=== PATIENT | female | born 1985 | race Caucasian/White ===

== ENCOUNTER 2018-08-24 14:00 | Outpatient (RCR) | payer OTHER, SELFPAY ==
[2018-08-17 13:29] VITALS: BP 118/71; PULSE 78; RESP 16; TEMP 37.3; BMI 29.2
--- NOTE | 2018-08-17 14:41 | HP.PCM_ITS ---
(1) Chronic venous insufficiency Status: Chronic Current Visit: Yes Code(s): I87.2 - Venous insufficiency (chronic) (peripheral) (2) Varicose veins with ulcer and inflammation Status: Chronic Current Visit: Yes Code(s): I83.209 - Varicose veins of unspecified lower extremity with both ulcer of unspecified site and inflammation; L97.909 - Non-pressure chronic ulcer of unspecified part of unspecified lower leg with unspecified severity (3) Leg swelling Status: Chronic Current Visit: Yes Code(s): M79.89 - Other specified soft tissue disorders (4) Venous hypertension, chronic, with ulcer and inflammation Status: Chronic Current Visit: Yes Qualifiers: Laterality: left Qualified Code(s): I87.332 - Chronic venous hypertension (idiopathic) with ulcer and inflammation of left lower extremity; L97.929 - Non- pressure chronic ulcer of unspecified part of left lower leg with unspecified severity Code(s): I87.339 - Chronic venous hypertension (idiopathic) with ulcer and inflammation of unspecified lower extremity; L97.909 - Non-pressure chronic ulcer of unspecified part of unspecified lower leg with unspecified severity (5) Postphlebitic calf ulcer Status: Chronic Current Visit: Yes Code(s): I87.019 - Postthrombotic syndrome with ulcer of unspecified lower extremity; L97.209 - Non-pressure chronic ulcer of unspecified calf with unspecified severity (6) Venous stasis ulcer Status: Chronic Current Visit: Yes Qualifiers: Venous stasis ulcer site: calf Code(s): I83.009 - Varicose veins of unspecified lower extremity with ulcer of unspecified site; L97.909 - Non-pressure chronic ulcer of unspecified part of unspecified lower leg with unspecified severity (7) Bleeding from varicose vein Status: Chronic Current Visit: Yes Code(s): I83.899 - Varicose veins of unspecified lower extremity with other complications (8) History of thrombophlebitis Status: Chronic Current Visit: Yes Code(s): Z86.72 - Personal history of thrombophlebitis History of Present Illness Date of Service: 08/17/18 Chief Complaint: Chronic venous insufficiency, varicose veins with ulceration and inflammation, post phlebitic syndrome with ulceration and inflammation, chronic venous hypertension with ulceration and inflammation, venous stasis ulceration?left lower extremity History of Wound: This is a 32-year-old [facility] female who presents with ulcerations on the left anterior tibial surface, related to her chronic venous disease. She has had approximately 3 episodes of spontaneous bleeding from these sites, since July 30, 2018. She had similar problems approximately 2 years ago, with healing which occurred spontaneously. On each recent occasion, the bleeding has occurred during or after a hot shower. The bleeding is described as profuse. In each case, the patient elevated her lower extremity and applied pressure, which allowed the bleeding to cease. Patient has a long- standing history of chronic venous disease. She is a Ab1, with 1 spontaneous miscarriage. Venous disease is present on the maternal side of her family. The patient has had superficial thrombophlebitis on 2 occasions in the past, each associated with a , in 2012 and again in 2014. The patient is active. She sleeps on a flat mattress at night. She has been wearing compression stockings of less than 20-30 mmHg compression. She relates swelling in her left lower extremity, typically at days end. Past Medical History Past Medical History: Chronic Problems Chronic venous insufficiency (Chronic) Varicose veins with ulcer and inflammation (Chronic) Leg swelling (Chronic) Venous hypertension, chronic, with ulcer and inflammation (Chronic) Postphlebitic calf ulcer (Chronic) Venous stasis ulcer (Chronic) Bleeding from varicose vein (Chronic) History of thrombophlebitis (Chronic) Past Medical History: Patient's history is negative for myocardial infarction, congestive heart failure, cerebrovascular accident, hypertension, cancer, renal disease, pulmonary disease, hyperlipidemia, and thyroid disease. She has a history of superficial thrombophlebitis on 2 occasions in the past, each associated with a . Surgical History: - - Patient is a Ab1 (spontaneous). She has undergone no prior major surgical procedures in the past. Allergies/Adverse Reactions: Allergies No Known Allergies Allergy (Verified 08/17/18 13:51) - Family History Paternal - - Patient's father is 55 years of age with a history of colon cancer. Patient's mother is 53 years of age and is healthy. Social History: Patient is . She is a mother of 4 daughters. 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 She denies use of alcohol and tobacco products. Lives: Spouse/ Significant Other Smoking Status: Never smoker Tobacco Use: Non-smoker Alcohol: None Drugs: None Review of Systems Constitutional: Denies: Chills, Fever, Weight Change Eyes: Denies: Pain, Vision Change HEENT: Denies: Difficulty Hearing, Difficulty Swallowing, Sinus Congestion Cardiovascular: Denies: Chest Pain, Palpitations Respiratory: Denies: Cough, Shortness of Breath Gastrointestinal: Denies: Diarrhea, Nausea, Vomiting Genitourinary: Denies: Dysuria, Hematuria Endocrine: Denies: Heat/ Cold Intolerance, Polydipsia, Polyuria Hematologic/ Lymphatic: Denies: Easy Bruising, Easy Bleeding - Physical Exam Vital Signs Temp Pulse Resp BP 99.1 F 78 16 118/71 08/17/18 13:29 08/17/18 13:29 08/17/18 13:29 08/17/18 13:29 General: Alert, Oriented x3, Cooperative, No apparent distress, Well developed, Well nourished HEENT: Atraumatic, PERRLA, EOMI, Normocephalic Oral: Moist Mucosa, No Gingival or Mucosal Lesions/ Ulcerations Neck: Supple, No JVD, Negative Carotid Bruits, Negative Hepatojugular Reflux, No Nodes, No Nuchal Rigidity, Trachea Midline Lungs: Clear to auscultation, Normal air movement, No rhonchi, No wheeze, No rales Cardiovascular: Regular rate, Regular Rhythm, Normal S1, Normal S2, No murmurs, No Ectopic Activity Abdomen: Soft, Non Tender, Non-Distended Extremities: No clubbing, No cyanosis, No edema, No Calf Tenderness, Peripheral Pulses Normal, - - 3 small ulcerations are noted on the left anterior tibial surface, within proximity to each. There is no active bleeding. There is no significant swelling in the lower extremities. Circumference measurements are documented elsewhere. Ulcer dimensions are documented elsewhere. There is no sign of infection or cellulitis. Multiple large varicosities are noted on the left lower extremity, involving the medial thigh and calf, and on the lateral aspect of the left foot. Skin: No rashes Wound Measurements and Assessment WC - Nurse 1 - General Ulcer Measurement Start: 08/17/18 13:27 Freq: Status: Active Protocol: Activity Type Activity Date Activity User E-Sign Co-Sign Detail Recorded Client Recorded Date Recorded By Document 08/17/18 13:29 [facility] [id number] 08/17/18 13:48 [facility] 08/17/18 13:29 Wound Center Nurse 1 [Ulcer Assessment] #2- LT LUU INFERIOR -Combined with other wound No -Current Size (cm) - Length 0.6 -Current Size (cm) - Width 0.5 -Current Size (cm) - Depth 0.1 -Total Square Cm 0.30 -Date of Last Picture (Recall this 08/17/18 field) -Photo Taken Yes -Epithelialization None Present -Tunneling No -Undermining/Tunneling No -Circular Undermining No -Exudate Amt None Present (0 %) -Wound Margin Distinct, Outline Attached -Granulation Amt None Present (0 %) -Slough/Fibrin Yes -Necrosis Amt Large (67-100%) -Necrotic Tissue Type Eschar -Structure Exposed N/A -Texture (Zeenat-wound Skin Appearance) Assessed -Moisture (Zeenat-wound Skin Appearance Assessed ) -Color (Zeenat-wound Skin Appearance) Assessed -Temperature (Zeenat-wound Skin No Abnormality Appearance) (Pt Warm) -Tenderness on Palpation (Zeenat-wound No Skin Appearance) -Ulcer Cleansing Rinsed/ Irrigated with Saline -Foul Odor after Cleansing No -Anesthetic Used 5% Lidocaine Gel #1- LT LUU SUPERIOR -Combined with other wound No -Current Size (cm) - Length 0.4 -Current Size (cm) - Width 0.4 -Current Size (cm) - Depth 0.3 -Total Square Cm 0.16 -Date of Last Picture (Recall this 08/17/18 field) -Photo Taken Yes -Epithelialization None Present -Tunneling No -Undermining/Tunneling No -Circular Undermining No -Exudate Amt None Present (0 %) -Wound Margin Distinct, Outline Attached -Granulation Amt Small (1-33%) -Granulation Quality Red -Slough/Fibrin Yes -Necrosis Amt Small (1-33%) -Necrotic Tissue Type Adherent Slough -Texture (Zeenat-wound Skin Appearance) Scarring -Moisture (Zeenat-wound Skin Appearance Dry/Scaly ) -Color (Zeenat-wound Skin Appearance) Assessed -Temperature (Zeenat-wound Skin No Abnormality Appearance) (Pt Warm) -Tenderness on Palpation (Zeenat-wound Yes Skin Appearance) -Ulcer Cleansing Rinsed/ Irrigated with Saline -Foul Odor after Cleansing No -Anesthetic Used 5% Lidocaine Gel [Edema Assessment] -Lower Limb Edema Present Yes -Right Calf (cm) 36 -Right Ankle (cm) 20.7 -Left Calf (cm) 38.5 -Left Ankle (cm) 21.7 WC - Nurse 2 - General Ulcer CM Notes Start: 08/17/18 13:27 Freq: Status: Active Protocol: Activity Type Activity Date Activity User E-Sign Co-Sign Detail Recorded Client Recorded Date Recorded By Document 08/17/18 14:01 [id number] 08/17/18 14:10 08/17/18 14:01 Wound Center Nurse 2 [Procedure/Treatment] #2- LT LUU INFERIOR -Time 14:06 -Correct Patient Yes -Correct Side, Site, Position Yes -Correct Procedure Yes -Procedure Performed No -Wound/Ulcer Outcome Not Healed -Ulcer Cleansing Rinsed/ Irrigated with Saline -Foul Odor after Cleansing No -Bioengineered Tissue No -Topical Lidocaine (%) 5 -Bleeding Controlled with NA -Offloading No #1- LT LUU SUPERIOR -Time 14:07 -Correct Patient Yes -Correct Side, Site, Position Yes -Correct Procedure Yes -Procedure Performed No -Wound/Ulcer Outcome Not Healed -Ulcer Cleansing Rinsed/ Irrigated with Saline -Foul Odor after Cleansing No -Bioengineered Tissue No -Topical Lidocaine (%) 5 -Bleeding Controlled with NA -Offloading No [See Physician Procedure note for Specifics] Pain Scale: 0-10 Numeric [Pain] -Is Patient Pain Free? Yes Musculoskeletal: No Muscle Wasting Neurological: Cranial nerves II-XII grossly intact, Neuro grossly intact Psych/Mental Status: Normal Affect, Appropriate, Alert and oriented to time, place, person, mood and affect Debridement Note Post-Debridement Measurements/Treatment MATEO - Nurse 2 - General Ulcer CM Notes Start: 08/17/18 13:27 Freq: Status: Active Protocol: Activity Type Activity Date Activity User E-Sign Co-Sign Detail Recorded Client Recorded Date Recorded By Document 08/17/18 14:01 [id number] 08/17/18 14:10 08/17/18 14:01 Wound Center Nurse 2 #2- LT LUU INFERIOR -Time 14:06 -Correct Patient Yes -Correct Side, Site, Position Yes -Correct Procedure Yes -Procedure Performed No -Wound/Ulcer Outcome Not Healed -Ulcer Cleansing Rinsed/ Irrigated with Saline -Foul Odor after Cleansing No -Bioengineered Tissue No -Topical Lidocaine (%) 5 -Bleeding Controlled with NA -Offloading No #1- LT LUU SUPERIOR -Time 14:07 -Correct Patient Yes -Correct Side, Site, Position Yes -Correct Procedure Yes -Procedure Performed No -Wound/Ulcer Outcome Not Healed -Ulcer Cleansing Rinsed/ Irrigated with Saline -Foul Odor after Cleansing No -Bioengineered Tissue No -Topical Lidocaine (%) 5 -Bleeding Controlled with NA -Offloading No Pain Scale: 0-10 Numeric Is Patient Pain Free? Yes As a result of suspected underlying venous hypertension, the patient's ulcerations were not debrided today, and effort to avoid bleeding. No debridement was completed today Assessment/Plan Active Problems Chronic venous insufficiency (Chronic) Varicose veins with ulcer and inflammation (Chronic) Leg swelling (Chronic) Venous hypertension, chronic, with ulcer and inflammation (Chronic) Postphlebitic calf ulcer (Chronic) Venous stasis ulcer (Chronic) Bleeding from varicose vein (Chronic) History of thrombophlebitis (Chronic) Assessment: This is a generally healthy 32-year-old female, with severe chronic venous disease. Her history is documented above. She presents with 3 small ulcerations on the left anterior tibial surface, with recent episodes of bleeding from these sites. Her presenting problems appear related to chronic venous hypertension and chronic venous insufficiency. Plan: A lengthy discussion has been undertaken with the patient and her , who is at the bedside. We are to implement conservative treatment measures. These measures have been thoroughly explained. Patient is to continue sleeping on a flat mattress at night. She has been encouraged to elevate her lower extremities as much as possible even during daytime hours. Elevation is to be to heart level, or higher. She is to avoid idle standing and sitting. Activity has been encouraged. She is to maintain optimal weight. A prescription has been provided for graduated compression stockings of 20-30 mmHg compression, waist-high. At which time the patient is able to obtain the compression stockings, we are to SurePress, which will be wrapped on the left lower extremity daily. The patient and her are to be instructed in the appropriate means of applying the SurePress wrap. We have also briefly discussed a more aggressive approach relative to the patient's presenting manifestations. As a prelude to possible intervention, a venous duplex examination is to be scheduled. Patient will follow-up after venous duplex assessment has been performed of her lower extremities. Influenza vaccine was not administered today. The patient is not a smoker. Patient weighs 165 pounds. She stands 5 feet 3 inches tall. Her BMI is 29.2, which places her in an overweight category. Weight optimization has been recommended, in collaboration with her primary care physician has been advised.
--- NOTE | 2018-08-24 13:00 | VDLE_ITS ---
Reason For Study: Edema RIGHT LEFT CFV is compressible, spontaneous, phasic, CFV is compressible, spontaneous, phasic, competent and demonstrates normal competent, and demonstrates normal augmentation. augmentation. FV is compressible, spontaneous, phasic, FV is compressible, spontaneous, phasic, competent and demonstrates normal competent and demonstrates normal augmentation. augmentation. POP V is compressible, spontaneous, phasic, POP V is compressible, spontaneous, phasic, competent and demonstrates normal competent and demonstrates normal augmentation. augmentation. T/P Trunk is compressible. T/P Trunk is compressible. PTV is compressible. PTV is compressible. RT PerV is compressible. LT PerV is compressible. SFJ is competent. SFJ is INCOMPETENT. GSV is competent. GSV is INCOMPETENT throughout for greater SSV is competent. than 0.5 seconds and measures 0.97 x 0.93 cm. Procedure SSV is INCOMPETENT for greater than 0.5 Exam performed in department. seconds and measures 0.25 x 0.22 cm. INCOMPETENT chief procurement officer at 13 cm above medial malleolus. Interpretation Summary Deep veins of the lower extremities are bilaterally patent and compressible segmentally. There is no evidence of deep vein thrombosis on either side. Valvular competence appears intact within the proximal deep venous systems bilaterally. The greater saphenous veins appear bilaterally patent and compressible segmentally. The right sapheno-femoral junction is competent . The left sapheno-femoral junction is incompetent . The right greater saphenous vein appears segmentally competent. The left greater saphenous vein appears segmentally incompetent. The right small saphenous vein is patent and competent. The left small saphenous vein is patent and incompetent. An incompetent chief procurement officer vein is noted in the left calf, located 13 centimeters proximal to the left medial malleolus. Ordering Physician: Parker Morgan Referring Physician: MD Bruce Schroeder Performed By: Lori Beverly RVT and Student
[2018-08-24 14:03] VITALS: BP 124/75; PULSE 86; RESP 14; TEMP 35.9; BMI 29.2
--- NOTE | 2018-08-24 15:18 | PCM.WC.HP ---
(1) Chronic venous insufficiency Status: Chronic Current Visit: Yes Code(s): I87.2 - Venous insufficiency (chronic) (peripheral) (2) Varicose veins with ulcer and inflammation Status: Chronic Current Visit: Yes Code(s): I83.209 - Varicose veins of unspecified lower extremity with both ulcer of unspecified site and inflammation; L97.909 - Non-pressure chronic ulcer of unspecified part of unspecified lower leg with unspecified severity (3) Leg swelling Status: Chronic Current Visit: Yes Code(s): M79.89 - Other specified soft tissue disorders (4) Venous hypertension, chronic, with ulcer and inflammation Status: Chronic Current Visit: Yes Qualifiers: Laterality: left Qualified Code(s): I87.332 - Chronic venous hypertension (idiopathic) with ulcer and inflammation of left lower extremity; L97.929 - Non-pressure chronic ulcer of unspecified part of left lower leg with unspecified severity Code(s): I87.339 - Chronic venous hypertension (idiopathic) with ulcer and inflammation of unspecified lower extremity; L97.909 - Non-pressure chronic ulcer of unspecified part of unspecified lower leg with unspecified severity (5) Postphlebitic calf ulcer Status: Chronic Current Visit: Yes Code(s): I87.019 - Postthrombotic syndrome with ulcer of unspecified lower extremity; L97.209 - Non-pressure chronic ulcer of unspecified calf with unspecified severity (6) Venous stasis ulcer Status: Chronic Current Visit: Yes Qualifiers: Venous stasis ulcer site: calf Laterality: left Code(s): I83.009 - Varicose veins of unspecified lower extremity with ulcer of unspecified site; L97.909 - Non-pressure chronic ulcer of unspecified part of unspecified lower leg with unspecified severity (7) Bleeding from varicose vein Status: Chronic Current Visit: Yes Code(s): I83.899 - Varicose veins of unspecified lower extremity with other complications (8) History of thrombophlebitis Status: Chronic Current Visit: Yes Code(s): Z86.72 - Personal history of thrombophlebitis History of Present Illness Chief Complaint: Chronic venous insufficiency, varicose veins with ulceration and inflammation, post phlebitic syndrome with ulceration and inflammation, chronic venous hypertension with ulceration and inflammation, venous stasis ulceration?left lower extremity History of Wound: This is a 32-year-old [facility] female who presents with ulcerations on the left anterior tibial surface, related to her chronic venous disease. She has had approximately 3 episodes of spontaneous bleeding from these sites, since July 30, 2018. She had similar problems approximately 2 years ago, with healing which occurred spontaneously. On each recent occasion, the bleeding has occurred during or after a hot shower. The bleeding is described as profuse. In each case, the patient elevated her lower extremity and applied pressure, which allowed the bleeding to cease. Patient has a long-standing history of chronic venous disease. She is a Ab1, with 1 spontaneous miscarriage. Venous disease is present on the maternal side of her family. The patient has had superficial thrombophlebitis on 2 occasions in the past, each associated with a , in 2012 and again in 2014. The patient is active. She sleeps on a flat mattress at night. She has been wearing compression stockings of less than 20-30 mmHg compression. She relates swelling in her left lower extremity, typically at days end. Past Medical History Past Medical History: Chronic Problems Chronic venous insufficiency (Chronic) Varicose veins with ulcer and inflammation (Chronic) Leg swelling (Chronic) Venous hypertension, chronic, with ulcer and inflammation (Chronic) Postphlebitic calf ulcer (Chronic) Venous stasis ulcer (Chronic) Bleeding from varicose vein (Chronic) History of thrombophlebitis (Chronic) Surgical History: - - Patient is a Ab1 (spontaneous). She has undergone no prior major surgical procedures in the past. Allergies/Adverse Reactions: Allergies No Known Allergies Allergy (Verified 08/17/18 13:51) - Family History Paternal - - Patient's father is 55 years of age with a history of colon cancer. Patient's mother is 53 years of age and is healthy. Lives: Spouse/ Significant Other Smoking Status: Never smoker Tobacco Use: Non-smoker Alcohol: None Drugs: None Review of Systems Constitutional: Denies: Chills, Fever, Weight Change Eyes: Denies: Pain, Vision Change HEENT: Denies: Difficulty Hearing, Difficulty Swallowing, Sinus Congestion Cardiovascular: Denies: Chest Pain, Palpitations Respiratory: Denies: Cough, Shortness of Breath Gastrointestinal: Denies: Diarrhea, Nausea, Vomiting Genitourinary: Denies: Dysuria, Hematuria Endocrine: Denies: Heat/ Cold Intolerance, Polydipsia, Polyuria Hematologic/ Lymphatic: Denies: Easy Bruising, Easy Bleeding - Physical Exam Vital Signs Temp Pulse Resp BP 96.6 F L 86 14 124/75 H 08/24/18 14:03 08/24/18 14:03 08/24/18 14:03 08/24/18 14:03 General: Alert, Oriented x3, Cooperative, No apparent distress, Well developed, Well nourished HEENT: Atraumatic, PERRLA, EOMI, Normocephalic Oral: Moist Mucosa Neck: No JVD Lungs: Normal air movement Abdomen: Non-Distended Extremities: No clubbing, No cyanosis, No Calf Tenderness, - - There is no significant swelling in the patient's lower extremities. The ulcerations on the left anterior tibial surface, which are adjacent, are somewhat smaller. At this time, they are represented by only 2 small eschars. There is no sign of infection or cellulitis. Dimensions are documented elsewhere. Multiple varicosities are noted in the left lower extremity, a variety of large and small. Skin: No rashes Wound Measurements and Assessment WC - Nurse 1 - General Ulcer Measurement Start: 08/17/18 13:27 Freq: Status: Active Protocol: Activity Type Activity Date Activity User E-Sign Co-Sign Detail Recorded Client Recorded Date Recorded By Document 08/24/18 14:03 [id number] 08/24/18 14:07 08/24/18 14:03 Wound Center Nurse 1 [Ulcer Assessment] #2- LT LUU INFERIOR -Combined with other wound No -Current Size (cm) - Length 0.5 -Current Size (cm) - Width 0.5 -Current Size (cm) - Depth 0 -Total Square Cm 0.25 -Photo Taken No -Epithelialization None Present -Tunneling No -Undermining/Tunneling No -Circular Undermining No -Exudate Amt None Present -Wound Margin Distinct, Outline Attached -Granulation Amt None Present (0 %) -Granulation Quality N/A -Slough/Fibrin Yes -Necrosis Amt Large (67-100%) -Necrotic Tissue Type Eschar -Structure Exposed None/Limited to Skin Breakdown -Texture (Zeenat-wound Skin Appearance) No Abnormality Assessed -Moisture (Zeenat-wound Skin Appearance No Abnormality ) Assessed -Color (Zeenat-wound Skin Appearance) No Abnormality Assessed -Temperature (Zeenat-wound Skin No Abnormality Appearance) (Pt Warm) -Tenderness on Palpation (Zeenat-wound No Skin Appearance) -Ulcer Cleansing Rinsed/ Irrigated with Saline -Foul Odor after Cleansing No -Anesthetic Used 4% Lidocaine Solution #1- LT LUU SUPERIOR -Combined with other wound No -Current Size (cm) - Length 0.5 -Current Size (cm) - Width 0.3 -Current Size (cm) - Depth 0 -Total Square Cm 0.15 -Photo Taken No -Epithelialization None Present -Tunneling No -Undermining/Tunneling No -Circular Undermining No -Exudate Amt None Present -Wound Margin Distinct, Outline Attached -Granulation Amt None Present (0 %) -Granulation Quality N/A -Slough/Fibrin Yes -Necrosis Amt Large (67-100%) -Necrotic Tissue Type Eschar -Structure Exposed None/Limited to Skin Breakdown -Texture (Zeenat-wound Skin Appearance) No Abnormality Assessed -Moisture (Zeenat-wound Skin Appearance No Abnormality ) Assessed -Color (Zeenat-wound Skin Appearance) No Abnormality Assessed -Temperature (Zeenat-wound Skin No Abnormality Appearance) (Pt Warm) -Tenderness on Palpation (Zeenat-wound No Skin Appearance) -Ulcer Cleansing Rinsed/ Irrigated with Saline -Foul Odor after Cleansing No -Anesthetic Used 4% Lidocaine Solution [Edema Assessment] -Lower Limb Edema Present No -Left Calf (cm) 38 -Left Ankle (cm) 21.2 WC - Nurse 2 - General Ulcer CM Notes Start: 08/17/18 13:27 Freq: Status: Active Protocol: Activity Type Activity Date Activity User E-Sign Co-Sign Detail Recorded Client Recorded Date Recorded By Document 08/24/18 14:54 MW [id number] 08/24/18 15:01 MW 08/24/18 14:54 Wound Center Nurse 2 [Procedure/Treatment] #2- LT LUU INFERIOR -Time 14:55 -Correct Patient Yes -Correct Side, Site, Position Yes -Correct Procedure Yes -Procedure Performed No -Post Debridement Size (cm) - Length 0.5 -Post Debridement Size (cm) - Width 0.5 -Post Debridement Size (cm) - Depth 0 -Total Square Cm 0.25 -Wound/Ulcer Outcome Not Healed -Ulcer Cleansing Not Cleansed -Foul Odor after Cleansing No -Bioengineered Tissue No -Bleeding Controlled with NA -Offloading No #1- LT LUU SUPERIOR -Time 14:56 -Correct Patient Yes -Correct Side, Site, Position Yes -Correct Procedure Yes -Procedure Performed No -Post Debridement Size (cm) - Length 0.5 -Post Debridement Size (cm) - Width 0.3 -Post Debridement Size (cm) - Depth 0 -Total Square Cm 0.15 -Wound/Ulcer Outcome Not Healed -Ulcer Cleansing Not Cleansed -Foul Odor after Cleansing No -Bleeding Controlled with NA -Offloading No [See Physician Procedure note for Specifics] Pain Scale: 0-10 Numeric [Pain] -Is Patient Pain Free? Yes Musculoskeletal: No Muscle Wasting Neurological: Cranial nerves II-XII grossly intact, Neuro grossly intact Psych/Mental Status: Normal Affect, Appropriate, Alert and oriented to time, place, person, mood and affect Debridement Note Post-Debridement Measurements/Treatment WC - Nurse 2 - General Ulcer CM Notes Start: 08/17/18 13:27 Freq: Status: Active Protocol: Activity Type Activity Date Activity User E-Sign Co-Sign Detail Recorded Client Recorded Date Recorded By Document 08/17/18 14:01 JS [email or web address] 08/17/18 14:10 JS Document 08/24/18 14:54 MW [id number] 08/24/18 15:01 MW 08/17/18 08/24/18 14:01 14:54 Wound Center Nurse 2 #2- LT LUU INFERIOR -Time 14:06 14:55 -Correct Patient Yes Yes -Correct Side, Site, Position Yes Yes -Correct Procedure Yes Yes -Procedure Performed No No -Post Debridement Size (cm) - Length 0.5 -Post Debridement Size (cm) - Width 0.5 -Post Debridement Size (cm) - Depth 0 -Total Square Cm 0.25 -Wound/Ulcer Outcome Not Healed Not Healed -Ulcer Cleansing Rinsed/ Not Cleansed Irrigated with Saline -Foul Odor after Cleansing No No -Bioengineered Tissue No No -Topical Lidocaine (%) 5 -Bleeding Controlled with NA NA -Offloading No No #1- LT LUU SUPERIOR -Time 14:07 14:56 -Correct Patient Yes Yes -Correct Side, Site, Position Yes Yes -Correct Procedure Yes Yes -Procedure Performed No No -Post Debridement Size (cm) - Length 0.5 -Post Debridement Size (cm) - Width 0.3 -Post Debridement Size (cm) - Depth 0 -Total Square Cm 0.15 -Wound/Ulcer Outcome Not Healed Not Healed -Ulcer Cleansing Rinsed/ Not Cleansed Irrigated with Saline -Foul Odor after Cleansing No No -Bioengineered Tissue No -Topical Lidocaine (%) 5 -Bleeding Controlled with NA NA -Offloading No No Pain Scale: 0-10 Numeric Is Patient Pain Free? Yes Yes Debridement was not performed of the eschar on the left anterior tibial surface. This is due to the fact that there is high suspicion of underlying veins under high venous pressure, and the likelihood of bleeding appears to be high, should debridement have been performed. No debridement was completed today Assessment/Plan Active Problems Chronic venous insufficiency (Chronic) Varicose veins with ulcer and inflammation (Chronic) Leg swelling (Chronic) Venous hypertension, chronic, with ulcer and inflammation (Chronic) Postphlebitic calf ulcer (Chronic) Venous stasis ulcer (Chronic) Bleeding from varicose vein (Chronic) History of thrombophlebitis (Chronic) Assessment: This is a generally healthy 32-year-old female, with severe chronic venous disease. Her history is documented above. She presented with 3 small ulcerations on the left anterior tibial surface, with recent episodes of bleeding from these sites. Her presenting problems appear related to chronic venous hypertension and chronic venous insufficiency. Venous duplex examination was performed earlier today, which reveals incompetence of the left sapheno-femoral junction, the left great saphenous vein, the left small saphenous vein, and an incompetent left calf labor supervisor located 13 cm proximal to the left medial malleolus. Plan: A lengthy discussion has been undertaken with the patient and her , who is at the bedside. We are to continue conservative treatment measures. These measures have been thoroughly explained. Patient is to continue sleeping on a flat mattress at night. She has been encouraged to elevate her lower extremities as much as possible even during daytime hours. Elevation is to be to heart level, or higher. She is to avoid idle standing and sitting. Activity has been encouraged. She is to maintain optimal weight. A prescription has been provided for graduated compression stockings of 20-30 mmHg compression, waist-high. The patient has now obtain the compression stockings, and has been wearing them daily. We have also again discussed a more aggressive approach relative to the patient's presenting manifestations. We have discussed the indications and risks, and the expectations as relates to endovenous laser ablation of the incompetent left great saphenous vein, left small saphenous vein, and the left incompetent labor supervisor vein. Issues have been discussed thoroughly and in detail. We are to provide the patient with a brochure regarding endovenous laser ablation, and the patient and her have requested an estimate of costs. The patient is to return in 2-3 weeks for reassessment. The superficial eschar is to be remain undisturbed, and the patient is to use Adaptic topically, to prevent any adherence to an overlying gauze dressing. Influenza vaccine was not administered today. The patient is not a smoker. Patient weighs 165 pounds. She stands 5 feet 3 inches tall. Her BMI is 29.2, which places her in an overweight category. Weight optimization has been recommended, in collaboration with her primary care physician has been advised.
--- NOTE | 2018-08-24 15:25 | HP.PCM_ITS ---
(1) Chronic venous insufficiency Status: Chronic Current Visit: Yes Code(s): I87.2 - Venous insufficiency (chronic) (peripheral) (2) Varicose veins with ulcer and inflammation Status: Chronic Current Visit: Yes Code(s): I83.209 - Varicose veins of unspecified lower extremity with both ulcer of unspecified site and inflammation; L97.909 - Non-pressure chronic ulcer of unspecified part of unspecified lower leg with unspecified severity (3) Leg swelling Status: Chronic Current Visit: Yes Code(s): M79.89 - Other specified soft tissue disorders (4) Venous hypertension, chronic, with ulcer and inflammation Status: Chronic Current Visit: Yes Qualifiers: Laterality: left Qualified Code(s): I87.332 - Chronic venous hypertension (idiopathic) with ulcer and inflammation of left lower extremity; L97.929 - Non- pressure chronic ulcer of unspecified part of left lower leg with unspecified severity Code(s): I87.339 - Chronic venous hypertension (idiopathic) with ulcer and inflammation of unspecified lower extremity; L97.909 - Non-pressure chronic ulcer of unspecified part of unspecified lower leg with unspecified severity (5) Postphlebitic calf ulcer Status: Chronic Current Visit: Yes Code(s): I87.019 - Postthrombotic syndrome with ulcer of unspecified lower extremity; L97.209 - Non-pressure chronic ulcer of unspecified calf with unspecified severity (6) Venous stasis ulcer Status: Chronic Current Visit: Yes Qualifiers: Venous stasis ulcer site: calf Laterality: left Code(s): I83.009 - Varicose veins of unspecified lower extremity with ulcer of unspecified site; L97.909 - Non-pressure chronic ulcer of unspecified part of unspecified lower leg with unspecified severity (7) Bleeding from varicose vein Status: Chronic Current Visit: Yes Code(s): I83.899 - Varicose veins of unspecified lower extremity with other complications (8) History of thrombophlebitis Status: Chronic Current Visit: Yes Code(s): Z86.72 - Personal history of thrombophlebitis History of Present Illness Chief Complaint: Chronic venous insufficiency, varicose veins with ulceration and inflammation, post phlebitic syndrome with ulceration and inflammation, chronic venous hypertension with ulceration and inflammation, venous stasis ulceration?left lower extremity History of Wound: This is a 32-year-old [facility] female who presents with ulcerations on the left anterior tibial surface, related to her chronic venous disease. She has had approximately 3 episodes of spontaneous bleeding from these sites, since July 30, 2018. She had similar problems approximately 2 years ago, with healing which occurred spontaneously. On each recent occasion, the bleeding has occurred during or after a hot shower. The bleeding is described as profuse. In each case, the patient elevated her lower extremity and applied pressure, which allowed the bleeding to cease. Patient has a long- standing history of chronic venous disease. She is a Ab1, with 1 spontaneous miscarriage. Venous disease is present on the maternal side of her family. The patient has had superficial thrombophlebitis on 2 occasions in the past, each associated with a , in 2012 and again in 2014. The patient is active. She sleeps on a flat mattress at night. She has been wearing compression stockings of less than 20-30 mmHg compression. She relates swelling in her left lower extremity, typically at days end. Past Medical History Past Medical History: Chronic Problems Chronic venous insufficiency (Chronic) Varicose veins with ulcer and inflammation (Chronic) Leg swelling (Chronic) Venous hypertension, chronic, with ulcer and inflammation (Chronic) Postphlebitic calf ulcer (Chronic) Venous stasis ulcer (Chronic) Bleeding from varicose vein (Chronic) History of thrombophlebitis (Chronic) Surgical History: - - Patient is a Ab1 (spontaneous). She has undergone no prior major surgical procedures in the past. Allergies/Adverse Reactions: Allergies No Known Allergies Allergy (Verified 08/17/18 13:51) - Family History Paternal - - Patient's father is 55 years of age with a history of colon cancer. Patient's mother is 53 years of age and is healthy. Lives: Spouse/ Significant Other Smoking Status: Never smoker Tobacco Use: Non-smoker Alcohol: None Drugs: None Review of Systems Constitutional: Denies: Chills, Fever, Weight Change Eyes: Denies: Pain, Vision Change HEENT: Denies: Difficulty Hearing, Difficulty Swallowing, Sinus Congestion Cardiovascular: Denies: Chest Pain, Palpitations Respiratory: Denies: Cough, Shortness of Breath Gastrointestinal: Denies: Diarrhea, Nausea, Vomiting Genitourinary: Denies: Dysuria, Hematuria Endocrine: Denies: Heat/ Cold Intolerance, Polydipsia, Polyuria Hematologic/ Lymphatic: Denies: Easy Bruising, Easy Bleeding - Physical Exam Vital Signs Temp Pulse Resp BP 96.6 F L 86 14 124/75 H 08/24/18 14:03 08/24/18 14:03 08/24/18 14:03 08/24/18 14:03 General: Alert, Oriented x3, Cooperative, No apparent distress, Well developed, Well nourished HEENT: Atraumatic, PERRLA, EOMI, Normocephalic Oral: Moist Mucosa Neck: No JVD Lungs: Normal air movement Abdomen: Non-Distended Extremities: No clubbing, No cyanosis, No Calf Tenderness, - - There is no significant swelling in the patient's lower extremities. The ulcerations on the left anterior tibial surface, which are adjacent, are somewhat smaller. At this time, they are represented by only 2 small eschars. There is no sign of infection or cellulitis. Dimensions are documented elsewhere. Multiple varicosities are noted in the left lower extremity, a variety of large and small. Skin: No rashes Wound Measurements and Assessment WC - Nurse 1 - General Ulcer Measurement Start: 08/17/18 13:27 Freq: Status: Active Protocol: Activity Type Activity Date Activity User E-Sign Co-Sign Detail Recorded Client Recorded Date Recorded By Document 08/24/18 14:03 [id number] 08/24/18 14:07 08/24/18 14:03 Wound Center Nurse 1 [Ulcer Assessment] #2- LT LUU INFERIOR -Combined with other wound No -Current Size (cm) - Length 0.5 -Current Size (cm) - Width 0.5 -Current Size (cm) - Depth 0 -Total Square Cm 0.25 -Photo Taken No -Epithelialization None Present -Tunneling No -Undermining/Tunneling No -Circular Undermining No -Exudate Amt None Present -Wound Margin Distinct, Outline Attached -Granulation Amt None Present (0 %) -Granulation Quality N/A -Slough/Fibrin Yes -Necrosis Amt Large (67-100%) -Necrotic Tissue Type Eschar -Structure Exposed None/Limited to Skin Breakdown -Texture (Zeenat-wound Skin Appearance) No Abnormality Assessed -Moisture (Zeenat-wound Skin Appearance No Abnormality ) Assessed -Color (Zeenat-wound Skin Appearance) No Abnormality Assessed -Temperature (Zeenat-wound Skin No Abnormality Appearance) (Pt Warm) -Tenderness on Palpation (Zeenat-wound No Skin Appearance) -Ulcer Cleansing Rinsed/ Irrigated with Saline -Foul Odor after Cleansing No -Anesthetic Used 4% Lidocaine Solution #1- LT LUU SUPERIOR -Combined with other wound No -Current Size (cm) - Length 0.5 -Current Size (cm) - Width 0.3 -Current Size (cm) - Depth 0 -Total Square Cm 0.15 -Photo Taken No -Epithelialization None Present -Tunneling No -Undermining/Tunneling No -Circular Undermining No -Exudate Amt None Present -Wound Margin Distinct, Outline Attached -Granulation Amt None Present (0 %) -Granulation Quality N/A -Slough/Fibrin Yes -Necrosis Amt Large (67-100%) -Necrotic Tissue Type Eschar -Structure Exposed None/Limited to Skin Breakdown -Texture (Zeenat-wound Skin Appearance) No Abnormality Assessed -Moisture (Zeenat-wound Skin Appearance No Abnormality ) Assessed -Color (Zeenat-wound Skin Appearance) No Abnormality Assessed -Temperature (Zeenat-wound Skin No Abnormality Appearance) (Pt Warm) -Tenderness on Palpation (Zeenat-wound No Skin Appearance) -Ulcer Cleansing Rinsed/ Irrigated with Saline -Foul Odor after Cleansing No -Anesthetic Used 4% Lidocaine Solution [Edema Assessment] -Lower Limb Edema Present No -Left Calf (cm) 38 -Left Ankle (cm) 21.2 WC - Nurse 2 - General Ulcer CM Notes Start: 08/17/18 13:27 Freq: Status: Active Protocol: Activity Type Activity Date Activity User E-Sign Co-Sign Detail Recorded Client Recorded Date Recorded By Document 08/24/18 14:54 MW [id number] 08/24/18 15:01 MW 08/24/18 14:54 Wound Center Nurse 2 [Procedure/Treatment] #2- LT LUU INFERIOR -Time 14:55 -Correct Patient Yes -Correct Side, Site, Position Yes -Correct Procedure Yes -Procedure Performed No -Post Debridement Size (cm) - Length 0.5 -Post Debridement Size (cm) - Width 0.5 -Post Debridement Size (cm) - Depth 0 -Total Square Cm 0.25 -Wound/Ulcer Outcome Not Healed -Ulcer Cleansing Not Cleansed -Foul Odor after Cleansing No -Bioengineered Tissue No -Bleeding Controlled with NA -Offloading No #1- LT LUU SUPERIOR -Time 14:56 -Correct Patient Yes -Correct Side, Site, Position Yes -Correct Procedure Yes -Procedure Performed No -Post Debridement Size (cm) - Length 0.5 -Post Debridement Size (cm) - Width 0.3 -Post Debridement Size (cm) - Depth 0 -Total Square Cm 0.15 -Wound/Ulcer Outcome Not Healed -Ulcer Cleansing Not Cleansed -Foul Odor after Cleansing No -Bleeding Controlled with NA -Offloading No [See Physician Procedure note for Specifics] Pain Scale: 0-10 Numeric [Pain] -Is Patient Pain Free? Yes Musculoskeletal: No Muscle Wasting Neurological: Cranial nerves II-XII grossly intact, Neuro grossly intact Psych/Mental Status: Normal Affect, Appropriate, Alert and oriented to time, place, person, mood and affect Debridement Note Post-Debridement Measurements/Treatment WC - Nurse 2 - General Ulcer CM Notes Start: 08/17/18 13:27 Freq: Status: Active Protocol: Activity Type Activity Date Activity User E-Sign Co-Sign Detail Recorded Client Recorded Date Recorded By Document 08/17/18 14:01 JS [id number] 08/17/18 14:10 JS Document 08/24/18 14:54 MW [id number] 08/24/18 15:01 MW 08/17/18 08/24/18 14:01 14:54 Wound Center Nurse 2 #2- LT LUU INFERIOR -Time 14:06 14:55 -Correct Patient Yes Yes -Correct Side, Site, Position Yes Yes -Correct Procedure Yes Yes -Procedure Performed No No -Post Debridement Size (cm) - Length 0.5 -Post Debridement Size (cm) - Width 0.5 -Post Debridement Size (cm) - Depth 0 -Total Square Cm 0.25 -Wound/Ulcer Outcome Not Healed Not Healed -Ulcer Cleansing Rinsed/ Not Cleansed Irrigated with Saline -Foul Odor after Cleansing No No -Bioengineered Tissue No No -Topical Lidocaine (%) 5 -Bleeding Controlled with NA NA -Offloading No No #1- LT LUU SUPERIOR -Time 14:07 14:56 -Correct Patient Yes Yes -Correct Side, Site, Position Yes Yes -Correct Procedure Yes Yes -Procedure Performed No No -Post Debridement Size (cm) - Length 0.5 -Post Debridement Size (cm) - Width 0.3 -Post Debridement Size (cm) - Depth 0 -Total Square Cm 0.15 -Wound/Ulcer Outcome Not Healed Not Healed -Ulcer Cleansing Rinsed/ Not Cleansed Irrigated with Saline -Foul Odor after Cleansing No No -Bioengineered Tissue No -Topical Lidocaine (%) 5 -Bleeding Controlled with NA NA -Offloading No No Pain Scale: 0-10 Numeric Is Patient Pain Free? Yes Yes Debridement was not performed of the eschar on the left anterior tibial surface. This is due to the fact that there is high suspicion of underlying veins under high venous pressure, and the likelihood of bleeding appears to be high, should debridement have been performed. No debridement was completed today Assessment/Plan Active Problems Chronic venous insufficiency (Chronic) Varicose veins with ulcer and inflammation (Chronic) Leg swelling (Chronic) Venous hypertension, chronic, with ulcer and inflammation (Chronic) Postphlebitic calf ulcer (Chronic) Venous stasis ulcer (Chronic) Bleeding from varicose vein (Chronic) History of thrombophlebitis (Chronic) Assessment: This is a generally healthy 32-year-old female, with severe chronic venous disease. Her history is documented above. She presented with 3 small ulcerations on the left anterior tibial surface, with recent episodes of bleeding from these sites. Her presenting problems appear related to chronic venous hypertension and chronic venous insufficiency. Venous duplex examination was performed earlier today, which reveals incompetence of the left sapheno- femoral junction, the left great saphenous vein, the left small saphenous vein, and an incompetent left calf communications tower technician located 13 cm proximal to the left medial malleolus. Plan: A lengthy discussion has been undertaken with the patient and her , who is at the bedside. We are to continue conservative treatment measures. These measures have been thoroughly explained. Patient is to continue sleeping on a flat mattress at night. She has been encouraged to elevate her lower ext remities as much as possible even during daytime hours. Elevation is to be to heart level, or higher. She is to avoid idle standing and sitting. Activity has been encouraged. She is to maintain optimal weight. A prescription has been provided for graduated compression stockings of 20-30 mmHg compression, waist-high. The patient has now obtain the compression stockings, and has been wearing them daily. We have also again discussed a more aggressive approach relative to the patient's presenting manifestations. We have discussed the indications and risks, and the expectations as relates to endovenous laser ablation of the incompetent left great saphenous vein, left small saphenous vein, and the left incompetent communications tower technician vein. Issues have been discussed thoroughly and in detail. We are to provide the patient with a brochure regarding endovenous laser ablation, and the patient and her have requested an estimate of costs. The patient is to return in 2-3 weeks for reassessment. The superficial eschar is to be remain undisturbed, and the patient is to use Adaptic topically, to prevent any adherence to an overlying gauze dressing. Influenza vaccine was not administered today. The patient is not a smoker. Patient weighs 165 pounds. She stands 5 feet 3 inches tall. Her BMI is 29.2, which places her in an overweight category. Weight optimization has been recommended, in collaboration with her primary care physician has been advised.
== END 2018-09-10 23:59 ==
LOC: WC 14:00
PROVIDERS: Family Provider Family Medicine; PCP Family Medicine; Referring Provider Surgery; Visit Provider Surgery
DX: I83.222 Varicose veins of left lower extremity with both ulcer of calf and inflammation (principal); M79.89 Other specified soft tissue disorders; Z86.72 Personal history of thrombophlebitis; L97.221 Non-pressure chronic ulcer of left calf limited to breakdown of skin
CPT/HCPCS: 93970; 99203; 99213; G0463

== ENCOUNTER 2018-11-19 06:39 | Day surgery (SDC) | payer SELFPAY ==
[2018-11-12 11:13] VITALS: BP 98/64; PULSE 79; RESP 16; TEMP 36.8; O2SAT 97; BMI 30.3
--- NOTE | 2018-11-15 11:37 | PCM.HP.STD ---
Problem List (1) Bleeding from varicose vein Status: Chronic (2) Chronic venous insufficiency Status: Chronic (3) History of thrombophlebitis Status: Chronic (4) Leg swelling Status: Chronic (5) Postphlebitic calf ulcer Status: Chronic (6) Varicose veins with ulcer and inflammation Status: Chronic (7) Venous hypertension, chronic, with ulcer and inflammation Status: Chronic Qualifiers: Laterality: left (8) Venous stasis ulcer Status: Chronic Qualifiers: Venous stasis ulcer site: calf Varicose vein presence: with varicose veins History of Present Illness Date of Admission: 11/19/18 Chief Complaint: Chronic venous insufficiency, varicose veins with ulcer and inflammation, chronic venous hypertension with ulcer and inflammation, post-phlebitic syndrome with ulceration and inflammation, venous stasis ulceration, spontaneous bleeding from superficial varicosity, leg swelling?left lower extremity This is a 32-year-old female who presented several months ago with a venous ulceration on the left anterior tibial surface and a history of long-standing chronic venous disease. She has had multiple episodes of spontaneous bleeding from superficial varicosities in the left lower extremity. This has occurred over a 2-3-year. Additionally, she has had several episodes of venous ulceration in the distal left lower extremity. The patient is a Ab1, with 1 spontaneous miscarriage. She has a family history of venous disease on the maternal side of her family. She has a history of superficial thrombophlebitis on 2 occasions in the past, each of which were associated with pregnancies. These occurred in 2012 and again in 2014. The patient is active. She sleeps on a flat mattress at night. She routinely wears graduated compression stockings of 20-30 mmHg compression. She notices swelling in her left lower extremity, most notably at the end of the day. She has recently been treated at the [facility], where conservative treatment measures have been implemented for an extended period of time. These measures have included, but are not limited to, leg elevation, avoidance of vital standing and sitting, the use of graduated compression stockings of at least 20-30 mmHg compression, active lifestyle, weight control measures, etc. Despite these measures, the patient has remained symptomatic, with symptoms which have adversely affected her daily activities, quality of life, and job functions. Venous duplex examination has been performed, which reveals incompetence of the left great saphenous vein, the left small saphenous vein, and an incompetent marketing strategist vein located approximately 13 cm proximal to the left medial malleolus. Past Medical History Past Medical History (Chronic Problems): Chronic Problems Chronic venous insufficiency (Chronic) Varicose veins with ulcer and inflammation (Chronic) Leg swelling (Chronic) Venous hypertension, chronic, with ulcer and inflammation (Chronic) Postphlebitic calf ulcer (Chronic) Venous stasis ulcer (Chronic) Bleeding from varicose vein (Chronic) History of thrombophlebitis (Chronic) Allergies No Known Allergies Allergy (Verified 11/12/18 11:09) Home Medications: Ambulatory Orders Medication Instructions Recorded Dr. Tyron Borges Vein 2 tab PO DAILY 11/12/18 No122/Iron/Folic Acid 1 each PO DAILY 11/12/18 [ Multi Tablet] Surgical History: - - Patient is a Ab1 (spontaneous). She has undergone no prior major surgical procedures in the past. 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 Patient's mother is 53 years of age and is healthy. Review of Systems Constitutional: Denies: Chills, Fever, Weight Change HEENT: Denies: Head Aches, Sinus Congestion, Sinus Drainage Cardiovascular: Denies: Chest Pain, Palpitations Respiratory: Denies: Cough, Shortness of breath at rest, Sputum production Gastrointestinal: Denies: Abdominal Pain, Nausea, Vomiting Genitourinary: Denies: Dysuria Musculoskeletal: Denies: Joint Pain, Joint Tenderness Skin: Denies: Rash, Wounds Neurological: Denies: Numbness, Tingling, Focal weakness Psychiatric: Denies: Anxiety, Depression, Homicidal Ideations, Suicidal Ideations Hematologic/ Lymphatic: Denies: Easy Bruising, Easy Bleeding VTE Information - Inpt Only VTE Present on Admission: No VTE Mechan Device Prophylaxis: SCD's - Right VTE Pharm Prophylaxis ordered?: Yes - Physical Exam General: Alert, Oriented x3, Cooperative, No apparent distress, Well developed, Well nourished HEENT: Atraumatic, PERRLA, EOMI, Normocephalic Oral: Moist Mucosa, No Gingival or Mucosal Lesions/ Ulcerations Neck: Supple, No JVD, Negative Carotid Bruits Lungs: Clear to auscultation, Normal air movement, No rhonchi, No wheeze, No rales Cardiovascular: Regular rate, Regular Rhythm, Normal S1, Normal S2, No murmurs Abdomen: Bowel Sounds Present, Soft, Non Tender Extremities: No clubbing, No cyanosis, No edema, Capillary Refill Less than 3 Seconds, No Calf Tenderness, Peripheral Pulses Normal, - - Multiple superficial varicosities are noted in the left lower extremity, of various sizes. Skin: No rashes, No breakdown Musculoskeletal: No Tenderness to Palpation of Joints or Extremities, No Muscle Wasting Neurological: Cranial nerves II-XII grossly intact, Neuro grossly intact Psych/Mental Status: Normal Affect, Appropriate, Alert and oriented to time, place, person, mood and affect Vital Signs Temp Pulse Resp BP Pulse Ox 98.2 F 79 16 98/64 97 11/12/18 11:13 11/12/18 11:13 11/12/18 11:13 11/12/18 11:13 11/12/18 11:13 Oxygen Delivery Method Room Air Weight: 171 lb 1.259 oz Body Mass Index (BMI) 30.3 Assessment/Plan This is a 32-year-old female with a long-standing history of chronic venous disease. She suffers from chronic venous insufficiency, varicose veins with ulcer and inflammation, chronic venous hypertension with ulcer and inflammation, post phlebitic syndrome with ulcer and inflammation, venous stasis ulceration, and swelling involving her left lower extremity. Venous duplex examination has been performed, revealing incompetence of the left great saphenous vein, left small saphenous vein, and an incompetent marketing strategist vein located approximately 13 cm proximal to the left medial malleolus. The implications of this finding have been discussed with patient in detail. The options of management have been fully explained. Conservative treatment measures have been implemented for an extended period of time, without resolution of the patient's symptoms. She wishes to proceed with elective endovenous laser ablation of the left great saphenous vein, the left small saphenous vein, and the incompetent left calf marketing strategist vein. The indications and risks of the procedure have been discussed with the patient in detail. The appropriate preprocedure consent process has been undertaken.
--- NOTE | 2018-11-15 11:43 | HP.PCM_ITS ---
Problem List (1) Bleeding from varicose vein Status: Chronic (2) Chronic venous insufficiency Status: Chronic (3) History of thrombophlebitis Status: Chronic (4) Leg swelling Status: Chronic (5) Postphlebitic calf ulcer Status: Chronic (6) Varicose veins with ulcer and inflammation Status: Chronic (7) Venous hypertension, chronic, with ulcer and inflammation Status: Chronic Qualifiers: Laterality: left (8) Venous stasis ulcer Status: Chronic Qualifiers: Venous stasis ulcer site: calf Varicose vein presence: with varicose veins History of Present Illness Date of Admission: 11/19/18 Chief Complaint: Chronic venous insufficiency, varicose veins with ulcer and inflammation, chronic venous hypertension with ulcer and inflammation, 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 She has had multiple episodes of spontaneous bleeding from superficial varicosities in the left lower extremity. This has occurred over a 2-3-year. Additionally, she has had several episodes of venous ulceration in the distal left lower extremity. The patient is a Ab1, with 1 spontaneous miscarriage. She has a family history of venous disease on the maternal side of her family. She has a history of superficial thrombophlebitis on 2 occasions in the past, each of which were associated with pregnancies. These occurred in 2012 and again in 2014. The patient is active. She sleeps on a flat mattress at night. She routinely wears graduated compression stockings of 20-30 mmHg compression. She notices swelling in her left lower extremity, most notably at the end of the day. She has recently been treated at the [facility], where conservative treatment measures have been implemented for an extended period of time. These measures have included, but are not limited to, leg elevation, avoidance of vital standing and sitting, the use of graduated compression stockings of at least 20- 30 mmHg compression, active lifestyle, weight control measures, etc. Despite these measures, the patient has remained symptomatic, with symptoms which have adversely affected her daily activities, quality of life, and job functions. Venous duplex examination has been performed, which reveals incompetence of the left great saphenous vein, the left small saphenous vein, and an incompetent hydrotreater operator vein located approximately 13 cm proximal to the left medial malleolus. Past Medical History Past Medical History (Chronic Problems): Chronic Problems Chronic venous insufficiency (Chronic) Varicose veins with ulcer and inflammation (Chronic) Leg swelling (Chronic) Venous hypertension, chronic, with ulcer and inflammation (Chronic) Postphlebitic calf ulcer (Chronic) Venous stasis ulcer (Chronic) Bleeding from varicose vein (Chronic) History of thrombophlebitis (Chronic) Allergies No Known Allergies Allergy (Verified 11/12/18 11:09) Home Medications: Ambulatory Orders Medication Instructions Recorded Dr. Tyron Borges Vein 2 tab PO DAILY 11/12/18 No122/Iron/Folic Acid 1 each PO DAILY 11/12/18 [ Multi Tablet] Surgical History: - - Patient is a Ab1 (spontaneous). She has undergone no prior major surgical procedures in the past. 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 Patient's mother is 53 years of age and is healthy. Review of Systems Constitutional: Denies: Chills, Fever, Weight Change HEENT: Denies: Head Aches, Sinus Congestion, Sinus Drainage Cardiovascular: Denies: Chest Pain, Palpitations Respiratory: Denies: Cough, Shortness of breath at rest, Sputum production Gastrointestinal: Denies: Abdominal Pain, Nausea, Vomiting Genitourinary: Denies: Dysuria Musculoskeletal: Denies: Joint Pain, Joint Tenderness Skin: Denies: Rash, Wounds Neurological: Denies: Numbness, Tingling, Focal weakness Psychiatric: Denies: Anxiety, Depression, Homicidal Ideations, Suicidal Ideations Hematologic/ Lymphatic: Denies: Easy Bruising, Easy Bleeding VTE Information - Inpt Only VTE Present on Admission: No VTE Mechan Device Prophylaxis: SCD's - Right VTE Pharm Prophylaxis ordered?: Yes - Physical Exam General: Alert, Oriented x3, Cooperative, No apparent distress, Well developed, Well nourished HEENT: Atraumatic, PERRLA, EOMI, Normocephalic Oral: Moist Mucosa, No Gingival or Mucosal Lesions/ Ulcerations Neck: Supple, No JVD, Negative Carotid Bruits Lungs: Clear to auscultation, Normal air movement, No rhonchi, No wheeze, No rales Cardiovascular: Regular rate, Regular Rhythm, Normal S1, Normal S2, No murmurs Abdomen: Bowel Sounds Present, Soft, Non Tender Extremities: No clubbing, No cyanosis, No edema, Capillary Refill Less than 3 Seconds, No Calf Tenderness, Peripheral Pulses Normal, - - Multiple superficial varicosities are noted in the left lower extremity, of various sizes. Skin: No rashes, No breakdown Musculoskeletal: No Tenderness to Palpation of Joints or Extremities, No Muscle Wasting Neurological: Cranial nerves II-XII grossly intact, Neuro grossly intact Psych/Mental Status: Normal Affect, Appropriate, Alert and oriented to time, place, person, mood and affect Vital Signs Temp Pulse Resp BP Pulse Ox 98.2 F 79 16 98/64 97 11/12/18 11:13 11/12/18 11:13 11/12/18 11:13 11/12/18 11:13 11/12/18 11:13 Oxygen Delivery Method Room Air Weight: 171 lb 1.259 oz Body Mass Index (BMI) 30.3 Assessment/Plan This is a 32-year-old female with a long-standing history of chronic venous disease. She suffers from chronic venous insufficiency, varicose veins with ulcer and inflammation, chronic venous hypertension with ulcer and inflammation, post phlebitic syndrome with ulcer and inflammation, venous stasis ulceration, and swelling involving her left lower extremity. Venous duplex examination has been performed, revealing incompetence of the left great saphenous vein, left small saphenous vein, and an incompetent hydrotreater operator vein located approximately 13 cm proximal to the left medial malleolus. The implications of this finding have been discussed with patient in detail. The options of management have been fully explained. Conservative treatment measures have been implemented for an extended period of time, without resolution of the patient's symptoms. She wishes to proceed with elective endovenous laser ablation of the left great saphenous vein, the left small saphenous vein, and the incompetent left calf hydrotreater operator vein. The indications and risks of the procedure have been discussed with the patient in detail. The appropriate preprocedure consent process has been undertaken.
[2018-11-19 07:30] VITALS: BP 119/79; PULSE 93; RESP 14; TEMP 36.8; O2SAT 100; BMI 30.3
[2018-11-19] MEDS: Enoxaparin 30 MG/0.3 ML Syringe SC (07:38)
[2018-11-19 08:09] LABS: Internal QC Validated? YES +Cl - CLEAR BKGD
[2018-11-19 08:10] LABS: Pregnancy, Urine Negative Negative
[2018-11-19] MEDS: Cefazolin 2 GM in 0.9% Normal Saline 100 ML IV (08:50)
--- NOTE | 2018-11-19 10:36 | DCINST_ITS ---
Discharge Diet: No Restrictions Discharge Activity: May Not Drive May shower in (days): 2 - Then rewrap leg daily from base of toes to upper thigh. Weight Bearing Status: Weight bearing as tolerated Lifting Restrictions: 10 pounds Keep extremity elevated above heart level: Left Leg Call your doctor if you observe: Shortness of breath, Fainting spells, Chest pain, Prolonged hiccoughing, Increased palpitations (irregular heartbeat), Uncontrolled pain Suture Line Care: Avoid Pulling/Pushing Remove Dressing in (days):: 2 - Then rewrap leg daily from base of toes to upper thigh. Allergies/Adverse Reactions: Allergies No Known Allergies Allergy (Verified 11/12/18 11:09) Medications to take at Discharge Dr. Ackerman V Vein 2 tab PO DAILY 11/12/18 No122/Iron/Folic Acid [ Multi Tablet] 1 each PO DAILY 11/12/18 Primary Care Physician: Bruce Almaraz [Primary Care Provider] - Test Results: Test results from this visit will be discussed in further detail at your follow- up appointment, if applicable. Please Follow Up With: Parker Morgan MD When: 10-14 days
[2018-11-19 10:40] VITALS: BP 110/52; BP 119/79; PULSE 107; RESP 16; TEMP 36.3; O2SAT 100
[2018-11-19 10:45] VITALS: BP 103/62; BP 119/79; PULSE 79; RESP 16; O2SAT 97
[2018-11-19 11:00] VITALS: BP 109/49; BP 119/79; PULSE 85; RESP 16; O2SAT 97
[2018-11-19 11:28] VITALS: BP 102/68; BP 119/79; PULSE 101; RESP 16; TEMP 36.2; O2SAT 100
[2018-11-19 12:40] VITALS: BP 105/63; BP 119/79; PULSE 87; RESP 16; TEMP 36.2; O2SAT 100
--- NOTE | 2018-11-23 07:17 | PCM.OPRPT ---
Problem List (1) Bleeding from varicose vein Status: Chronic (2) Chronic venous insufficiency Status: Chronic (3) History of thrombophlebitis Status: Chronic (4) Leg swelling Status: Chronic (5) Postphlebitic calf ulcer Status: Chronic (6) Varicose veins with ulcer and inflammation Status: Chronic (7) Venous hypertension, chronic, with ulcer and inflammation Status: Chronic Qualifiers: Laterality: left (8) Venous stasis ulcer Status: Chronic Qualifiers: Venous stasis ulcer site: calf Varicose vein presence: with varicose veins Laterality: left Non-pressure ulcer stage: with fat layer exposed Qualified Code(s): I83.022 - Varicose veins of left lower extremity with ulcer of calf; L97.222 - Non-pressure chronic ulcer of left calf with fat layer exposed Report of Operation Date of Procedure: 11/19/18 Pre-Operative Diagnosis: Chronic venous insufficiency, varicose veins with ulcer and inflammation, chronic venous hypertension with ulcer and inflammation, post-phlebitic syndrome with ulcer and inflammation, swelling, venous stasis ulceration - Left lower extremity Post-Operative Diagnosis: Chronic venous insufficiency, varicose veins with ulcer and inflammation, chronic venous hypertension with ulcer and inflammation, post-phlebitic syndrome with ulcer and inflammation, swelling, venous stasis ulceration - Left lower extremity Surgery/Procedure Performed:: 1. Endovenous laser ablation of left great saphenous vein. 2. 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 She suffers from chronic venous insufficiency, varicose veins with ulcer and inflammation, chronic venous hypertension with ulcer and inflammation, post-phlebitic syndrome with ulcer and inflammation, swelling, and a venous stasis ulceration involving her left lower extremity. Venous duplex examination was performed, revealing incompetence of the left great saphenous vein, the left small saphenous vein, and an incompetent larriman helper vein located approximately 13 cm proximal to the left medial malleolus. The implications of this diagnosis were discussed with the patient in detail. The options of management were fully explained. Conservative treatment measures were implemented for a protracted period of time, which included leg elevation, avoidance of idle standing and sitting, compression, active lifestyle, weight control measures, etc. Despite these measures, the patient's symptoms or manifestations persisted, adversely affecting daily activities, quality of life, and job functions. The indications and risks of endovenous laser ablation of the left great saphenous vein, the left small saphenous vein, and the incompetent left calf larriman helper vein were discussed with the patient in detail. The appropriate preprocedure consent process was undertaken. The patient underwent ultrasound marking of the left great saphenous vein, the left small saphenous vein, and the incompetent left calf larriman helper vein. She was then brought to the operating suite, placed supine upon the operating table, where general anesthesia was administered by the anesthesia staff. The patient's left lower extremity and left groin were prepped and draped in the appropriate sterile manner. The patient was placed in reverse Trendelenburg position. Ultrasonography was used to image the left great saphenous vein in the distal calf. It had been noted that the incompetent left calf larriman helper vein coalesced directly with the left great saphenous vein, and the decision was made to forego ablation of the larriman helper vein, with clinical impression that ablation of the left great saphenous vein across the coalescence with the larriman helper vein would likely arrest flow and provide clinical benefit. The micropuncture technique was used to access the left great saphenous vein percutaneously in the distal calf, at least several centimeters distal to its junction with the incompetent larriman helper vein. In this manner, a 0.018 inch guidewire was advanced intraluminally into the left great saphenous vein, and was visualized by ultrasonography. A micropuncture sheath was advanced over the guidewire. The 0.018 inch guidewire was exchanged for a 0.035 inch guidewire, which was then advanced intraluminally to a level just distal to the left sapheno?femoral junction, as confirmed by ultrasound imaging. A long 4 Georgian sheath was then advanced over the guidewire, and its tip was positioned approximately 2 cm distal to the left sapheno-femoral junction. Attention was then directed to the incompetent left small saphenous vein. To enhance exposure, the left lower extremity was placed in an externally rotated position with the left knee flexed. Using ultrasound imaging and the micropuncture technique, a micropuncture sheath was introduced intraluminally into the left small saphenous vein near the inferior border of the left gastrocnemius muscle, and was left in place, capped, for subsequent access purposes. Attention was then redirected to the long 4 Georgian sheath which had been previously placed intraluminally within the left great saphenous vein. Perivenous tumescent anesthesia was injected from the 4 Georgian sheath exit site up to the left sapheno-femoral junction. This was performed segmentally using ultrasound imaging. The AngioDynamics laser fiber was then introduced into the 4 Georgian sheath and coupled appropriately. Ultrasonography was used to confirm that the tip of the laser fiber was positioned within the left great saphenous vein approximately 2-1/2 cm distal to the left sapheno-femoral junction. The patient was placed in Trendelenburg position and the laser fiber was activated. The AngioDynamics laser was slowly withdrawn at a constant rate throughout the length of the left great saphenous vein, thereby ablating the left great saphenous vein segmentally. The energy applied was approximately 60-80 J/cm. Following the laser ablation, the laser fiber and sheath were removed, and manual pressure was briefly applied to the percutaneous access site to achieve hemostasis. Attention was then directed to the micropuncture sheath which had been previously placed intraluminally within the left small saphenous vein. A 0.035 inch guidewire was introduced intraluminally and its tip was positioned within the proximal portion of the left small saphenous vein. A long 4 Georgian sheath was then advanced over the guidewire and into position intraluminally within the left small saphenous vein. Perivenous tumescent anesthesia was injected from the 4 Georgian sheath exit site up to the tip of the sheath. This was performed segmentally using ultrasound imaging. The AngioDynamics laser fiber was then introduced into the 4 Georgian sheath and coupled appropriately. Ultrasonography was used to confirm that the tip of the laser fiber was positioned within the proximal left small saphenous vein, several centimeters distal to its junction with the deep venous system, and remaining within the superficial portion of the left small saphenous vein. The patient was placed in Trendelenburg position and the laser fiber was activated. The AngioDynamics laser was slowly withdrawn at a constant rate throughout the length of the left small saphenous vein, thereby ablating the left small saphenous vein segmentally. The energy applied was approximately 60-80 J/cm. Following the laser ablation, the laser fiber and sheath were removed, and manual pressure was briefly applied to the percutaneous access site to achieve hemostasis. After assuring satisfactory hemostasis, the access sites were approximated using Cavalon and Steri-Strips. Dry sterile gauze dressings were applied over each of the access sites, and the leg was wrapped from the base of the toes to the upper thigh with Kerlix, followed by Hadley wrap. The blood loss for the procedure was minimal. The sponge, needle, and instrument counts at the end of the procedure were correct. The patient tolerated the procedure well, and was transported from the operating room to the postanesthesia care unit in stable condition. The amount of tumescent anesthesia utilized, number of joules applied, and treatment times were recorded separately. - Admit VTE Documentation VTE Present on Admission: No VTE Mechan Device Prophylaxis: SCD's - Right VTE Pharm Prophylaxis ordered?: Yes
--- NOTE | 2018-11-23 07:21 | OP.PCM_ITS ---
Problem List (1) Bleeding from varicose vein Status: Chronic (2) Chronic venous insufficiency Status: Chronic (3) History of thrombophlebitis Status: Chronic (4) Leg swelling Status: Chronic (5) Postphlebitic calf ulcer Status: Chronic (6) Varicose veins with ulcer and inflammation Status: Chronic (7) Venous hypertension, chronic, with ulcer and inflammation Status: Chronic Qualifiers: Laterality: left (8) Venous stasis ulcer Status: Chronic Qualifiers: Venous stasis ulcer site: calf Varicose vein presence: with varicose veins Laterality: left Non-pressure ulcer stage: with fat layer exposed Qualified Code(s): I83.022 - Varicose veins of left lower extremity with ulcer of calf; L97.222 - Non-pressure chronic ulcer of left calf with fat layer exposed Report of Operation Date of Procedure: 11/19/18 Pre-Operative Diagnosis: Chronic venous insufficiency, varicose veins with ulcer and inflammation, chronic venous hypertension with ulcer and inflammation, 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 Endovenous laser ablation of left great saphenous vein. 2. Endovenous laser ablation of left small saphenous vein Description of Surgical Findings:: As above loom winder tender: None Type of Anesthesia:: General, Tumescent Specimen's removed: None Drains: None Estimated Blood Loss (mL): Minimal Description of Procedure: This is a 32-year-old female with a long-standing history of chronic venous disease. She suffers from chronic venous insufficiency, varicose veins with ulcer and inflammation, chronic venous hypertension with ulcer and inflammation, post-phlebitic syndrome with ulcer and inflammation, swelling, and a venous stasis ulceration involving her left lower extremity. Venous duplex examination was performed, revealing incompetence of the left great saphenous vein, the left small saphenous vein, and an incompetent newsperson vein located approximately 13 cm proximal to the left medial malleolus. The implications of this diagnosis were discussed with the patient in detail. The options of management were fully explained. Conservative treatment measures were implemented for a protracted period of time, which included leg elevation, avoidance of idle standing and sitting, compression, active lifestyle, weight control measures, etc. Despite these measures, the patient's symptoms or manifestations persisted, adversely affecting daily activities, quality of life, and job functions. The indications and risks of endovenous laser ablation of the left great saphenous vein, the left small saphenous vein, and the incompetent left calf newsperson vein were discussed with the patient in detail. The appropriate preprocedure consent process was undertaken. The patient underwent ultrasound marking of the left great saphenous vein, the left small saphenous vein, and the incompetent left calf newsperson vein. She was then brought to the operating suite, placed supine upon the operating table, where general anesthesia was administered by the anesthesia staff. The patient' s left lower extremity and left groin were prepped and draped in the appropriate sterile manner. The patient was placed in reverse Trendelenburg position. Ultrasonography was used to image the left great saphenous vein in the distal calf. It had been noted that the incompetent left calf newsperson vein coalesced directly with the left great saphenous vein, and the decision was made to forego ablation of the newsperson vein, with clinical impression that ablation of the left great saphenous vein across the coalescence with the newsperson vein would likely arrest flow and provide clinical benefit. The micropuncture technique was used to access the left great saphenous vein percutaneously in the distal calf, at least several centimeters distal to its junction with the incompetent newsperson vein. In this manner, a 0.018 inch guidewire was advanced intraluminally into the left great saphenous vein, and was visualized by ultrasonography. A micropuncture sheath was advanced over the guidewire. The 0.018 inch guidewire was exchanged for a 0.035 inch guidewire, which was then advanced intraluminally to a level just distal to the left sapheno?femoral junction, as confirmed by ultrasound imaging. A long 4 Macedonian sheath was then advanced over the guidewire, and its tip was positioned approximately 2 cm distal to the left sapheno-femoral junction. Attention was then directed to the incompetent left small saphenous vein. To enhance exposure, the left lower extremity was placed in an externally rotated position with the left knee flexed. Using ultrasound imaging and the microp uncture technique, a micropuncture sheath was introduced intraluminally into the left small saphenous vein near the inferior border of the left gastrocnemius muscle, and was left in place, capped, for subsequent access purposes. Attention was then redirected to the long 4 Macedonian sheath which had been previously placed intraluminally within the left great saphenous vein. Perivenous tumescent anesthesia was injected from the 4 Macedonian sheath exit site up to the left sapheno-femoral junction. This was performed segmentally using ultrasound imaging. The AngioDynamics laser fiber was then introduced into the 4 Macedonian sheath and coupled appropriately. Ultrasonography was used to confirm that the tip of the laser fiber was positioned within the left great saphenous vein approximately 2-1/2 cm distal to the left sapheno-femoral junction. The patient was placed in Trendelenburg position and the laser fiber was activated. The AngioDynamics laser was slowly withdrawn at a constant rate thro ughout the length of the left great saphenous vein, thereby ablating the left great saphenous vein segmentally. The energy applied was approximately 60-80 J/cm. Following the laser ablation, the laser fiber and sheath were removed, and manual pressure was briefly applied to the percutaneous access site to achieve hemostasis. Attention was then directed to the micropuncture sheath which had been previously placed intraluminally within the left small saphenous vein. A 0.035 inch guidewire was introduced intraluminally and its tip was positioned within the proximal portion of the left small saphenous vein. A long 4 Macedonian sheath was then advanced over the guidewire and into position intraluminally within the left small saphenous vein. Perivenous tumescent anesthesia was injected from th e 4 Macedonian sheath exit site up to the tip of the sheath. This was performed segmentally using ultrasound imaging. The AngioDynamics laser fiber was then introduced into the 4 Macedonian sheath and coupled appropriately. Ultrasonography was used to confirm that the tip of the laser fiber was positioned within the proximal left small saphenous vein, several centimeters distal to its junction with the deep venous system, and remaining within the superficial portion of the left small saphenous vein. The patient was placed in Trendelenburg position and the laser fiber was activated. The AngioDynamics laser was slowly withdrawn at a constant rate throughout the length of the left small saphenous vein, thereby ablating the left small saphenous vein segmentally. The energy applied was approximately 60- 80 J/cm. Following the laser ablation, the laser fiber and sheath were removed, and manual pressure was briefly applied to the percutaneous access site to achieve hemostasis. After assuring satisfactory hemostasis, the access sites were approximated using Cavalon and Steri-Strips. Dry sterile gauze dressings were applied over each of the access sites, and the leg was wrapped from the base of the toes to the upper thigh with Kerlix, followed by Hadley wrap. The blood loss for the procedure was minimal. The sponge, needle, and instrument counts at the end of the procedure were correct. The patient tolerated the procedure well, and was transported from the operating room to the postanesthesia care unit in stable condition. The amount of tumescent anesthesia utilized, number of joules applied, and treatment times were recorded separately. - Admit VTE Documentation VTE Present on Admission: No VTE Mechan Device Prophylaxis: SCD's - Right VTE Pharm Prophylaxis ordered?: Yes
== END 2018-11-19 12:47 | disposition home or self-care (01) ==
LOC: SDC 06:45 → AC 06:45
PROVIDERS: Anesthesiology; Family Provider Family Medicine; PCP Family Medicine; Referring Provider Surgery; Visit Provider Surgery
PROC: (CPT 36478; principal; 2018-11-19 08:45)
DX: I83.222 Varicose veins of left lower extremity with both ulcer of calf and inflammation (principal); L97.222 Non-pressure chronic ulcer of left calf with fat layer exposed; K21.9 Gastro-esophageal reflux disease without esophagitis
CPT/HCPCS: 01260; 36478; 36479; 81025; J7040; J7120; J2405

== ENCOUNTER → 2019-03-04 | Outpatient (CLI) | payer OTHER, SELFPAY ==
--- NOTE | 2019-03-04 10:53 | VDLE_ITS ---
Reason For Study: Venous HTN RIGHT LEFT CFV is compressible, spontaneous, phasic, CFV is compressible, spontaneous, phasic, competent and demonstrates normal competent, and demonstrates normal augmentation. augmentation. FV is compressible, spontaneous, phasic, FV is compressible, spontaneous, phasic, competent and demonstrates normal competent and demonstrates normal augmentation. augmentation. POP V is compressible, spontaneous, phasic, POP V is compressible, spontaneous, phasic, competent and demonstrates normal competent and demonstrates normal augmentation. augmentation. T/P Trunk is compressible. T/P Trunk is compressible. PTV is compressible. PTV is compressible. RT PerV is compressible. LT PerV is compressible. SFJ is competent and measures 0.66 x 0.73 cm. SFJ is INCOMPETENT for greater than 0.5 GSV is competent and measures 0.29 x 0.32 in seconds and measures 0.53 x 0.84 cm. prox thigh and 0.21 x 0.211 cm at knee. GSV is thrombosed throughout s/p EVLA. SSV is competent and measures 0.28 x 0.27 cm. INCOMPETENT lye bath operator noted 13 cm above Procedure medial malleolus. Exam performed in department. SSV is thrombosed throughout s/p EVLA. ASV posterior mid calf is INCOMEPTENT for greater than 0.5 seconds and measures 0.20 x 0.22 cm. Interpretation Summary Deep veins of the lower extremities are bilaterally patent and compressible segmentally. There is no evidence of deep vein thrombosis on either side. Valvular competence appears intact within the proximal deep venous systems bilaterally. The right greater saphenous vein appears patent and compressible segmentally. The left greater saphenous vein is occluded, consistent with a prior endovenous ablation procedure. The right sapheno-femoral junction is competent . The left sapheno- femoral junction is incompetent . The right great saphenous vein appears segmentally competent. The right small saphenous vein is patent and competent. The left small saphenous vein is occluded, consistent with a prior endovenous ablation procedure. An incompetent accessory saphenous vein is noted in the left mid-calf. An incompetent lye bath operator vein is noted in the left calf, located 13 centimeters proximal to the left medial malleolus. Ordering Physician: Parker Morgan Referring Physician: MD Elda [facility] Performed By: Funmilayo Lyons RVT
== END | disposition home or self-care (01) ==
LOC: CVS 10:52
PROVIDERS: Family Provider Family Medicine; PCP Family Medicine; Referring Provider Surgery; Visit Provider Surgery
DX: I87.332 Chronic venous hypertension (idiopathic) with ulcer and inflammation of left lower extremity (principal); M79.609 Pain in unspecified limb; I87.2 Venous insufficiency (chronic) (peripheral); I83.10 Varicose veins of unspecified lower extremity with inflammation
CPT/HCPCS: 93970

== ENCOUNTER 2025-07-29 09:02 | Day surgery (SDC) | payer SELFPAY, OTHER ==
[2025-07-29] VITALS (9 sets, daily range): BP systolic 94–117; BP diastolic 56–69; PULSE 66–100; RESP 14–18; TEMP 36.3–36.6; O2SAT 92–100; BMI 30.9
[2025-07-29] MEDS: Lactated Ringers 1,000 ML 15 ML IV (09:22)
--- OUTSIDE RECORDS SUMMARY | 2025-07-29 09:27 | XMS RPT_ITS | CCD ---
Author Organization [facility] Care Team Providers Care Crime Scene Specialist Name Role Phone Bruce Almaraz Primary Care Unavailable Bruce Almaraz Referring Unavailable Shraddha Arreguin Attending Unavailable Bruce Almaraz Primary Care Unavailable Shraddha Arreguin Attending Unavailable Problems Problem Classification Problem Date Documented Da te Episodic/Chronic Hemorrhoids (1 source) Unspecified hemorrhoids; Translations: [Unspecified hemorrhoids] Onset: 06-16-2025 Episodic Other screening for suspected conditions (not mental disorders or infectious disease) (1 source) Encounter for screening for malignant neoplasm of colon; Translations: [Encounter for screening for malignant neoplasm of colon] Onset: 06-16-2025 Episodic Residual codes; unclassified (1 source) Family history of malignant neoplasm of digestive organs; Translations: [Family history of malignant neoplasm of digestive organs] Onset: 06-16-2025 Episodic Results Test Name Value Interpretation Reference Range Facil ity Surgery Visit Reporton 06-16 Surgery Visit Report [facility] [address] [place] [address] OFFICE VISIT Date of Service: 06/16/25 MR#: [id number] Acct: [id number] Name: FRANCIE BULLARD Rep #: [id number] : 1985 Provider: Dr. Shraddha hager MD Age/Sex: 39/F Location: [facility] Status: Signed Intake Vital Signs 06/16/25 09:06 Height 5 ft 4 in Weight: 182 lb BMI 31.2 BP 103/70 Blood Pressure Location Rt brachial Position Sitting Respiration 17 Pulse 89 Pulse Source Monitor Temp 97.5 F L Temp Source Temporal Pulse Oximetry (%) 100 Oxygen Delivery Method room air Intake Visit Reasons: CHANGE IN BOWELS / HEMORRHOIDS Chief Complaint: change in bowels/hemorrhoid Accompanied by: Allergies No Known Allergies Allergy (Verified 06/16/25 09:07) Medications ???Medication ???Instructions ???Recorded ???Confirmed ???Type Hydrocortisone 2.5%/lidocaine 5% #30 ea 06/16/25 06/16/25 Rx suppository (cmpd) (hydrocortisone 2.5%/lidocaine 5% suppository (compound)) ascorbic acid (vitamin C) 1,000 mg 1,000 mg PO Q12H 06/16/25 History tablet,extended release superfoods 100 PO 06/16/25 06/16/25 History PFSH Family History (Updated 06/16/25 @ 09:05 by Zainab Scott) Father Colon cancer, Onset Age: 54 Social History (Updated 06/16/25 @ 09:06 by Zainab Scott) Smoking Status: Never smoker alcohol intake: never HPI HPI HPI: 39-year-old female presents for colonoscopy due to family history of rectal cancer. Patient's dad was diagnosed with rectal cancer at age 54 he did receive chemotherapy as well as radiation???this did recur. Patient states she did previously have a small amount of bright red blood per rectum in the toilet but has not had anything recently and did have a known hemorrhoid at the time. Patient has bowel moods daily denies any chronic abdominal pain/nausea/vomiting/ reflux. Never had previous colonoscopy. Patient did use [id number] Preparation H suppositories which did help shrink the hemorrhoid that she had in March this year. ROS General General: No weight change, appetite, fatigue, colon cancer or breast cancer HEENT HEENT: No difficulty swallowing, eye injury, eye surgery, swollen glands or hoarseness Endo Endocrine: No thyroid disease, diabetes mellitus, thyroid cancer, Hair loss, heat intolerance or cold intolerance Skin Skin: No rash or changing moles Musc Musculoskeletal: No back problems, arthritis, rheumatoid arthritis, gout or joint pain Cardio Cardiovascular: No murmur, pacemaker, heart disease, atrial fibrillation, high blood pressure, heart attack, heart stent, palpitations, shortness of breath with exertion or chest pain Psych Psychiatric: No depression, anxiety or hearing voices Resp Respiratory: No shortness of breath, No sleep apnea, No cough, No COPD, No asthma, No emphysema and No wheezing Gastro Gastrointestinal: No abdominal pain, No nausea or vomiting, Yes diarrhea, Yes constipation, No blood in stool, No acid reflux, Yes hemorrhoids, No ulcers, No gallbladder problem and No black,tarry stools Mikhail Hematologic: No blood thinners, No blood disorders, No bleeding, No anemia and No blood clots Neuro Neurologic: No numbness and No tingling Exam Const General: cooperative, healthy appearing, comfortable and no acute distress [facility] Head: normocephalic and atraumatic Neck Neck: supple Resp Effort Inspection: normal respiratory effort Cardio Rate: regular rate GI Inspection: non-distended Palpation: soft and nontender Skin General: no rashes or lesions noted Neuro General: CN's II-XI intact bilaterally Extrem General: normal to inspection Psych Mental Status: mental status grossly normal Attitude: cooperative Assessment and Plan Assessment and Plan (1) Encounter for colonoscopy in patient with family history of colon cancer: Status: Acute (2) Hemorrhoids: Status: Acute Medications: New Hydrocortisone 2.5%/lidocaine 5% suppository (cmpd) (hydrocortisone 2.5%/lidocaine 5% suppository (compound)) insert rectally bid for hemorrhoids 30 ea 1RF Plan Will give patient a prescription for hydrocortisone/lidoca ine suppository compound as there is 2.5% hydrocortisone versus Preparation H has may be 1%. I have discussed the above with the patient. I have offered the patient colonoscopy for evaluation. I have explained the risks/benefits of the procedure and described the procedure. I have discussed the risks with the patient, including but not limited to: infection, bleeding, perforation of the GI tract requiring emergency surgery, inability to complete the procedure, injury to any internal organs, complications of anesthesia, etc. - the patient understands and agrees to proceed. I (more content not included)... Normal [facility] Encounters Encounter Date Encounter Type Care Provider Facility Start: 07-29-2025 [facility] [place]:[facility] Start: 06-16-2025 End: 06-16-2025 [facility] [place] [place] Payers Date Payer Category Payer Self-pay 2025 Unknown [id number] Unknown [id number] Unknown [id number] Summary Purpose Family History No Family History Records Found Advance Directives No Advanced Directives Records Found Additional Source Comments INFORMATION SOURCE (unrecogn ized section and content) DATE CREATED AUTHOR 06/17/2025 [facility] FOR RECORDS PERTAINING TO PATIENTS WHO ARE OR HAVE BEEN ENROLLED IN A CHEMICAL DEPENDENCY/SUBSTANCEABUSE PROGRAM, SOME INFORMATION MAY BE OMITTED. This clinical summary was aggregated from multiple sources. Caution should be exercised in using it in the provision of clinical care. This summary normalizes information from multiple sources, and as a consequence, information in this document may materially change the coding, format and clinical context of patient data. In addition, data may be omitted in some cases. CLINICAL DECISIONS SHOULD BE BASED ON THE PRIMARY CLINICAL RECORDS. [employer] provides no warranty or guarantee of the accuracy or completeness of information in this document.
[2025-07-29 09:31] LABS: Internal QC Validated? YES +Cl - CLEAR BKGD; Pregnancy, Urine Negative Negative
--- NOTE | 2025-07-29 09:36 | PCM.PRE.AN2 ---
ASA Classification* ASA Classification ASA Classification: 1 Assessment & Plan Anesthesia* Anesthesia Assessment Anesthesia Assessment: Discussed sedation and/or anesthesia options, risks, benefits, and alternatives with patient/parents/legal guardian/POA. Questions invited. The patient/parents/legal guardian/POA seems to understand and agrees to proceed with anesthesia plan. Reviewed the physical assessment, medical history, allergy history and patient home medications list prior to surgery/procedure/anesthetic and documented any changes. Performed airway and anesthesia risk assessments. Anesthesia Type Anesthesia Type: MAC History Source History Obtained from:: Patient and Chart Anesthesia Focused Assessment* Temperature: 97.8 F Pulse Rate: 100 Blood Pressure: 117/69 Respiratory Rate: 14 Pulse Ox: 100 Oxygen Delivery Method: Room Air Airway Assessment Mouth opens: >3 cm Mallampati Score: I Teeth Condition: Intact Neck Range of motion (ROM): Full ROM Labs Anesthesia Preop lab: CBC CHEMISTRY COAG Urine Test Negative Negative Today, 09:10 Pre-Assessment Diagnosis/Proposed Procedure Planned Operative Procedure(s): COLONOSCOPY Anesthesia History Anesthesia History - vehicle monitor technician: Anesthesia History - vehicle monitor technician Hx Hospitalization No 07/27/25 11:47 Any Problems With Anesthesia No 07/27/25 11:47 Cholinesterase deficiency No 07/27/25 11:47 You/Your Family Experience No 07/27/25 11:47 fever (hyperthermia) with Relationship Recent Exposure to Contagious No 07/29/25 09:17 Disease Does patient have nerve No 07/27/25 11:47 stimulator Patient instructed to have device shut off --Does patient have Pacemaker No 07/29/25 09:17 or ICD? When Was Last Pacemaker Check QUESTION #4 FULL TEXT: You/Your Family Experience fever (hyperthermia) with Anesthesia Last Oral Intake Last Oral intake: Last Oral Intake NPO since 20:30 07/29/25 09:17 Meds taken in AM with sips of No 07/29/25 09:17 water? Meds patient instructed to take am of surgery PONV PONV - vehicle monitor technician: PONV - vehicle monitor technician Female Yes 07/27/25 11:47 HX of Motion Sickness Yes 07/27/25 11:47 HX of N/V After Surgery No 07/27/25 11:47 Non-Smoker Yes 07/27/25 11:47 Duration of Surgery greater No 07/27/25 11:47 than 60 minutes Number of Risk Factors 3 07/27/25 11:47 PONV Score Moderate Risk 07/27/25 11:47 Height & Weight Height & Weight: Anesthesia: Height & Weight Height 5 ft 4 in 07/29/25 09:17 Weight: 81.6 kg 07/29/25 09:17 Body Mass Index (BMI) 30.9 07/29/25 09:17 Respiratory Assessment Respiratory Assessment - vehicle monitor technician: Respiratory Tract Infection Hx - vehicle monitor technician Hx Respiratory Tract Infection No 07/27/25 11:47 STOP Sleep Apnea STOP Sleep Apnea - vehicle monitor technician: STOP Sleep Apnea - vehicle monitor technician Hx Hypertension No 07/27/25 11:47 Hx Sleep Apnea No 07/27/25 11:47 CPAP BIPAP Do you snore loudly (louder No 07/27/25 11:47 than talking or can be heard Do you often feel tired/ No 07/27/25 11:47 fatigued/ sleepy during daytime? Has anyone observed you stop No 07/27/25 11:47 breathing during sleep? STOP Results Negative 07/27/25 11:47 QUESTION #5 FULL TEXT : Do you snore loudly (louder than talking or can be heard through closed doors)? Tobacco Use History Tobacco Use History - vehicle monitor technician: Tobacco Use History - vehicle monitor technician Tobacco Use Smoking Status Never smoker 07/27/25 11:47 Hx Tobacco Use No 07/27/25 11:47 Years Smoking Packs Smoked per Day Smoking Cessation Date was within the last 15 years Hx Smoking Cessation Date Hx Smoking Cessation Counseling Hematologic Medial History Hematologic Hx - vehicle monitor technician: Hematologic Medical Hx - yard brakeman Hx of Blood Transfusion No 07/27/25 11:47 Hx of Transfusion in last 3 No 07/27/25 11:47 Months Date of Last Transfusion (if within last 3 months) Ever experience any problems No 07/27/25 11:47 with transfusion(s)? Specify any problems Hx of Preganancy in last 3 No 07/27/25 11:47 Months Nurse Filling Out Transfusion DSCHRIBER 07/27/25 11:47 & Questions: Date: 07/27/25 07/27/25 11:47 Time: 11:49 07/27/25 11:47 Patient unable to answer at this time (ie. confused, unrespo /Reproduction History /Reproductive History - vehicle monitor technician: /Reproductive Hx- vehicle monitor technician Hx Now No 07/27/25 11:47 Gestational Age (in weeks): EDC: Hx Hx Para Hx Section SAB No 07/27/25 11:47 Does the father of the baby or his family experience fever w Father of the baby Malignant Hypertension history comment Active Medications Active Medications: Current Medications Generic Name Dose Route Start Last Admin Trade Name Anali PRN Reason Stop Dose Admin Lactated Ringer's 1,000 mls @ 15 mls/hr 07/29/25 09:15 07/29/25 09:22 IV 15 mls/hr .Q48H NANCY Administration PFSH Medical History Non-smoker Home Medications ?Medication ?Instructions ?Recorded ?Last Taken ?Type ascorbic acid (vitamin C) 1,000 mg 1,000 mg PO DAILY 06/16/25 Unknown History tablet,extended release multivitamin (Daily Multi-Vitamin 1 tab PO DAILY 07/27/25 Unknown History tablet) Allergy/AdvReac Type Severity Reaction Status Date / Time No Known Allergies Allergy Verified 07/29/25 09:16 Family History Father Colon cancer, Onset Age: 54 Surgical History Hx of varicose vein ligation Social History Smoking Status: Never smoker alcohol intake: never Review of Systems (Anesthesia) ROS Narrative System reviewed and no additional complaints, except as documented.
--- NOTE | 2025-07-29 10:00 | COLBX_PTH ---
PATIENT: FRANCIE BULLARD LOC: EN U#:[id number] AGE/SX: 39/F ROOM: RE07/29/[address]: Dr. Shraddha Arreguin MD : 1985 BED: DIS: 07/29/2025 SPEC #: [id number] RECD: 07/29/25 12:34 STATUS: JAVID REJohnnie #: [id number] [place]: 07/29/25 10:[address]: Shraddha Arreguin DEPT: SURGICAL PATHOLOGY RECD BY: Fortunato Russell ENTERED: 07/29/25 14:17 SP TYPE: COLON BX OTHR DR: CHARLENE Davidson Tissues: A - Cecum, NOS B - Ileum, NOS C - Transverse colon D - Rectum, NOS E - Rectum, NOS F - Rectum, NOS Procedures: Surgery Specimen Level IV HEADER OPERATION: Colonoscopy with biopsy and polypectomy PRE-OP DIAGNOSIS: Encounter for colonoscopy in patient with family history of colon cancer, hemorrhoids TISSUE SUBMITTED: A- Cecum polyp, B- Terminal ileum biopsy, C- Transverse colon polyp, D- Rectal polyp @15cm #1, E- Rectal polyp stalk, F- Rectal polyp @12cm #2 MICROSCOPIC DIAGNOSIS A. Large intestine, cecum polyp, biopsy: Sessile serrated lesion. B. Small intestine, terminal ileum, biopsy: Normal villous architecture with prominent mucosal lymphoid aggregate, favor reactive - see note. Note: If clinical concern for a lymphoproliferative disorder is high, please contact the Laboratory to request further evaluation. C. Colon, transverse polyp, biopsy: Sessile serrated lesion. Melanosis coli. D. Rectum, polyp at 15cm #1, polypectomy: Tubulovillous adenoma. Dysplasia appears to involve the surgical margin (distorted with cautery artifact). E. Rectum, polyp stalk, polypectomy: Hyperplastic crypt change, small mucosal lymphoid aggregate. No definitive dysplasia seen - see note. Note: The tissue is distorted with cautery artifact, limiting the assessment. F. Rectum, polyp at 12cm #2, polypectomy: Tubulovillous adenoma, multiple fragments. MICROSCOPIC DESCRIPTION Slides are reviewed. GROSS DESCRIPTION A. Received in fixative is one container labeled with the patient's name and designated Cecum polyp. The specimen consists of one irregular fragment of sequeira tissue that measures 0.8 cm. The specimen is totally submitted in one cassette. B. Received in fixative is one container labeled with the patient's name and designated Terminal ileum biopsy. The specimen consists of one irregular fragment of sequeira tissue that measures 0.6 cm. The specimen is totally submitted in one cassette. C. Received in fixative is one container labeled with the patient's name and designated Transverse colon polyp. The specimen consists of one irregular fragment of sequeira tissue that measures 0.7 cm. The specimen is totally submitted in one cassette. D. Received in fixative is one container labeled with the patient's name and designated Rectal polyp @15cm #1. The specimen consists of Is a 1.6 x 0.8 x 0.3 cm pink-red, granular and irregular polyp with a possible resection margin (inked black). The polyp is trisected (fragmented upon sectioning) and entirely submitted in 1 cassette. E. Received in fixative is one container labeled with the patient's name and designated Rectal polyp stalk. The specimen consists of three irregular fragments of sequeira tissue that measure 0.1 to 0.3cm. The specimen is totally submitted in one cassette. F. Received in fixative is one container labeled with the patient's name and designated Rectal polyp @12cm #2. The specimen consists of a 1.0 x 0.9 x 0.4 cm pink to red polyp with a possible, partial stock, 0.4 cm in length by 0.3 cm in diameter. The resection margin is inked green and the specimen is bisected. Entirely submitted in 1 cassette. AK 07/29/2025 CPT:61194n0
--- NOTE | 2025-07-29 10:24 | HP.PCM_ITS ---
HPI - General General Date of Service: 07/29/25 HPI Narrative FRANCIE BULLARD, is a 39 F who presents for colonoscopy due to FH of rectal cancer no changes since office visit. office visit 06/16/25 [facility] HPI: 39-year-old female presents for colonoscopy due to family history of rectal cancer. Patient's dad was diagnosed with rectal cancer at age 54 he did receive chemotherapy as well as radiation?this did recur. Patient states she did previously have a small amount of bright red blood per rectum in the toilet but has not had anything recently and did have a known hemorrhoid at the time. Patient has bowel moods daily denies any chronic abdominal pain/nausea/v omiting/reflux. Never had previous colonoscopy. Patient did use [id number] Preparation H suppositories which did help shrink the hemorrhoid that she had in March this year. PFSH Medical History Non-smoker Home Medications ?Medication ?Instructions ?Recorded ?Last Taken ?Type ascorbic acid (vitamin C) 1,000 mg 1,000 mg PO DAILY 1 08/16/24 Unknown History tablet,extended release multivitamin (Daily Multi-Vitamin 1 tab PO DAILY 07/27 Unknown History tablet) Allergy/AdvReac Type Severity Reaction Status Date / Time No Known Allergies Allergy Verified 07/29/25 09:16 Family History Father Colon cancer, Onset Age: 54 Surgical History Hx of varicose vein ligation Social History Smoking Status: Never smoker alcohol intake: never Past Medical/Surgical History Planned Operation Planned Operative Procedure(s): COLONOSCOPY S.O.S: No Previous Hospitalizations/Surgeries HX Hospitalizations: No Any Problems With Anesthesia: No You/Your Family Experience Fever (Hyperthermia) With Anes: No Cholinesterase deficiency: No Cardiovascular Hx Chest Pain within Last 2 months: No Hx of Irregular Heartbeat and/or Afib: No Hx Heart Attack: No Hx Congestive Heart Failure: No Hx Rheumatic Fever: No Hx Hypertension: No Hx Internal Defibrillator: No Hx Pacemaker: No Hx Cardiac Catheterization: No Hx Cardiac Surgery/Stents/Etc.: No Hx Stress Test: No Hx Pain in Legs when Walking/Leg Cramps: No Respiratory Chronic Cough: No HX of Shortness of Breath: No Hoarseness: No Hx Chronic Obstructive Pulmonary Disease (COPD): No Hx Asthma: No Hx Emphysema: No Hx Sleep Apnea: No Hx Respiratory Tract Infection/Cold (presently): No Do You Snore Loudly (louder than talking or can be heard): No Do You Often Feel Tired/ Fatigued/ Sleepy Dring Daytime?: No Has Anyone Observed You Stop Breathing During Sleep?: No Result (for STOP score): Negative Hx Smoking: No Smoking Status: Never smoker Gastrointestinal Controlled With Meds: No Hx Gastrointestinal Bleed: No Hx Ulcer: No Hx Hiatal Hernia: No Difficulty Chewing/Swallowing: No Special diet followed at home: No Hx Unplanned Weight Loss of 20#: No HX Unplanned Weight Gain of 20#: No Neurological Hx Seizures: No HX Syncope/Blackout Spells/Unconsciousness: No Hx Transient Ischemic Attacks (TIA): No Hx Multiple Sclerosis: No Hx Parkinson's Disease: No Hx Head/Neck Injury: No Hx Headaches: No Hx Back Injury/Pain: No Recent Onset of Speech Difficulty: No Restless Legs: No Does patient have nerve stimulator: No Blood Disorder Hx Leukemia: No Bleeding Tendencies: No Hx Deep Vein Thrombosis: No Hx High Cholesterol: No Blood Transmitted Disease: No Hx Hepatitis: No Hx Cirrhosis: No Hx Anemia: No Hx Blood Disorders: No Reproduction : No Is Patient Lactating: No Hx Hysterectomy: No Hx Tubal Ligation: No Are You Post Menopause: No Genitourinary Hx Renal Disease: No Musculoskeletal Hx Arthritis: No Hx Rheumatoid Arthritis: No Hx Gout: No Recent Onset of an Orthopedic Problem: No Endocrine Hx Diabetes: No Thyroid Disease: No Hx Steroid Therapy: No Psycho/Social Hx Substance Use: No Hx Alcohol Use: No Hx Anxiety: No Hx Depression: No Mental Illness: No Hx Dementia: No Miscellaneous Hx Cancer: No Recent Exposure to Contagious Disease: No Hx of C-Diff: No Any Loose Teeth: No Allergies No Known Allergies Allergy (Verified 07/29/25 09:16) Paternal: Family History Father Colon cancer, Onset Age: 54 - (The patient's father is 55 years of age and has a history of colon cancer. Patient's mother is 53 years of age and is healthy.) Discharge Is Pt Admitted From a Group Home, or a Halfway: No After D/C, Where Do you Plan to Go: Return Home Vital Signs Vital Signs Vital Signs: 07/29/25 09:17 07/29/25 09:17 07/29/25 09:22 Temperature 97.8 F Temperature Source Temporal Pulse Rate 100 Respiratory Rate 14 Respiratory Pattern Normal Blood Pressure 117/69 Blood Pressure Mean 85 Blood Pressure Source Monitor Blood Pressure Position Semi-Fowlers Blood Pressure Location Left Arm Baseline BP 117/69 Pulse Ox 100 Oxygen Delivery Method Room Air 07/29/25 09:41 Temperature 97.8 F Temperature Source Pulse Rate 100 Respiratory Rate 14 Respiratory Pattern Blood Pressure 117/69 Blood Pressure Mean Blood Pressure Source Blood Pressure Position Blood Pressure Location Baseline BP Pulse Ox 100 Oxygen Delivery Method Room Air Weight Weight: 179 lb 14.355 oz Body Mass Index (BMI) 30.9 Physical Exam Const alert, oriented x3 and no apparent distress HEENT normocephalic and head/scalp atraumatic Resp normal respiratory effort Cardio regular rate GI soft to palpation and non-tender; Negative for non-distended Palpation: Negative for guarding Extremity no clubbing, cyanosis or edema Skin no rashes or lesions noted Neuro CN's II-XII intact bilaterally Psych mental status grossly normal Assessment & Plan Assessment/Plan (1) Encounter for colonoscopy in patient with family history of colon cancer: (2) Hemorrhoids: Surgery Risks - Colonoscopy I discussed with the patient the risks of the procedure: Yes Risks Include but are not Limited To: Risks include but are not limited to: Bleeding, perforation requiring further surgery, inability to complete colonoscopy requiring barium enema.
[2025-07-29] MEDS: Lactated Ringers 500 ML IV (10:43)
--- NOTE | 2025-07-29 11:11 | PCM.POST.ANE ---
Anesthesia: Postop Eval I Current Vital Signs Temperature: 98 F Pulse Rate: 88 Blood Pressure: 96/57 Respiratory Rate: 16 Pulse Ox: 98 Oxygen Delivery Method: Room Air Assessment Airway patent: Yes Spontaneous unlabored respirations: Yes Mental status: Awake and Calm nausea: No Vomiting: No Anesthesia Complication: No Fluid Hydration Crystalloid volume administer (ml): 500 Total IV fluid infused: 500 Progress Note Anesthesia document: Postop Eval 1 completed: Yes
--- NOTE | 2025-07-29 11:29 | OP.COLON_ITS ---
Patient Name: Nadiya Pacheco Procedure Date: 07/29/2025 9:31 AM Date of : 1985 Age: 39 Procedure: Colonoscopy Indications: Screening in patient at increased risk: Family history of 1st-degree relative with colorectal cancer before age 60 years Providers: Shraddha Arreguin MD Referring MD: Praneeth Davidson Medicines: Monitored Anesthesia Care Patient Profile: This is a 39 year old female. Refer to note in patient chart for documentation of history and physical. Last Colonoscopy: none. The patient's first colonoscopy is today. Complications: No immediate complications. Procedure: Pre-Anesthesia Assessment: - Prior to the procedure, a History and Physical was performed, and patient medications and allergies were reviewed. The patient's tolerance of previous anesthesia was also reviewed. The risks and benefits of the procedure and the sedation options and risks were discussed with the patient. All questions were answered, and informed consent was obtained. Prior Anticoagulants: The patient has taken no anticoagulant or antiplatelet agents. ASA Grade Assessment: Per anesthesia. After reviewing the risks and benefits, the patient was deemed in satisfactory condition to undergo the procedure. After I obtained informed consent, the scope was passed under direct vision. Throughout the procedure, the patient's blood pressure, pulse, and oxygen saturations were monitored continuously. The Colonoscope was introduced through the anus and advanced to the ileocecal valve. The colonoscopy was performed without difficulty. The patient tolerated the procedure well. The quality of the bowel preparation was good. Scope In: 10:47:06 AM Scope Withdrawal Time 0 hours 16 minutes 43 seconds Scope Out: 11:09:47 AM Total Procedure Duration Time 0 hours 22 minutes 41 seconds Findings: Hemorrhoids were found on perianal exam. An 18 mm polyp was found in the rectum at 15 cm. The polyp was multi-lobulated and pedunculated???Stach also sent separate. The polyp was removed with a hot snare. Resection and retrieval were complete. An 8 mm polyp was found in the rectum at 12 cm. The polyp was pedunculated. The polyp was removed with a hot snare. Resection and retrieval were complete. Two sessile polyps were found in the transverse colon and cecum. The polyps were less than 5 mm in size. These polyps were removed with a cold biopsy forceps. Resection and retrieval were complete. An area of melanosis was found in the entire colon. A diffuse area of mucosa in the terminal ileum was nodular. Biopsies were taken with a cold forceps for histology. The exam was otherwise without abnormality. Impression: - Hemorrhoids found on perianal exam. - One 18 mm polyp in the rectum, removed with a hot snare. Resected and retrieved. - One 8 mm polyp in the rectum, removed with a hot snare. Resected and retrieved. - Two less than 5 mm polyps in the transverse colon and in the cecum, removed with a cold biopsy forceps. Resected and retrieved. - Melanosis in the colon. - Nodular ileal mucosa. Biopsied. - The examination was otherwise normal. Recommendation: - Discharge patient to home. - Resume previous diet. - Continue present medications. - Await pathology results. - Repeat colonoscopy 1-3 years for surveillance based on pathology results. Procedure Code(s): --- Professional --- 99339, PT, Colonoscopy, flexible; with removal of tumor(s), polyp(s), or other lesion(s) by snare technique 75502, 59, Colonoscopy, flexible; with biopsy, single or multiple Diagnosis Code(s): --- Professional --- K63.89, Other specified diseases of intestine Z80.0, Family history of malignant neoplasm of digestive organs K64.9, Unspecified hemorrhoids D12.8, Benign neoplasm of rectum D12.3, Benign neoplasm of transverse colon (hepatic flexure or splenic flexure) D12.0, Benign neoplasm of cecum CPT copyright 2021 [employer]. All rights reserved. The codes documented in this report are preliminary and upon forming mill operator review may be revised to meet current compliance requirements. MD Shraddha Chung MD 07/29/2025 11:29:22 AM This report has been signed electronically. Number of Addenda: 0 Note Initiated On: 07/29/2025 9:31 AM
--- NOTE | 2025-07-29 11:30 | OP.PROVAT_ITS ---
07/29/2025 Praneeth Davidson Re : Colonoscopy procedure for Nadiya Pacheco Dear Kvng This procedure was performed on Tuesday, July 29, 2025. My impressions and recommendations are as follows: Impressions : - Hemorrhoids found on perianal exam. - One 18 mm polyp in the rectum, removed with a hot snare. Resected and retrieved. - One 8 mm polyp in the rectum, removed with a hot snare. Resected and retrieved. - Two less than 5 mm polyps in the transverse colon and in the cecum, removed with a cold biopsy forceps. Resected and retrieved. - Melanosis in the colon. - Nodular ileal mucosa. Biopsied. - The examination was otherwise normal. Recommendations : - Discharge patient to home. - Resume previous diet. - Continue present medications. - Await pathology results. - Repeat colonoscopy 1-3 years for surveillance based on pathology results. My findings are described in the full procedure note, which is enclosed. If I can be of further assistance, please feel free to contact me at Doctor phone number(s): , Work: . Sincerely, MD Shraddha Chung MD 07/29/2025 11:29:22 AM This report has been signed electronically.
--- NOTE | 2025-07-29 20:29 | POSTOPAN2_ITS ---
Anesthesia Postop Eval I Sum Postop Eval Completion status Anesthesia document: Postop Eval 1 completed: Yes Anesthesia Postop Eval I Summary Anesthesia Postop Eval I Summary: Anesthesia Postop Eval I: Assessment Summary Airway patent Yes 07/29/25 11:11 DIE PRESS OPERATOR.MDOT Spontaneous unlabored Yes 07/29/25 11:11 DIE PRESS OPERATOR.MDOT respirations Mental status Awake,Calm 07/29/25 11:11 DIE PRESS OPERATOR.MDOT nausea No 07/29/25 11:11 DIE PRESS OPERATOR.MDOT Vomiting No 07/29/25 11:11 DIE PRESS OPERATOR.MDOT Anesthesia Postop Eval I: Fluid Summary Crystalloid volume administer 500 07/29/25 11:11 DIE PRESS OPERATOR.MDOT (ml) Colloids volume administered ( ml) Blood Product volume administered (ml) Total IV fluid infused 500 07/29/25 11:11 DIE PRESS OPERATOR.MDOT Anesthesia Postop Eval I: Summary Notes Anesthesia Complication No 07/29/25 11:11 DIE PRESS OPERATOR.MDOT Anesthesia Complication Comment: Post-operative progress note Anesthesia: Postop Eval II Evaluation Mental status: Awake and Calm Pain Level: 0 nausea: No Vomiting: No Complications Anesthesia Complication: No
--- NOTE | 2025-07-29 20:29 | PCM.POSTANE2 ---
Anesthesia Postop Eval I Sum Postop Eval Completion status Anesthesia document: Postop Eval 1 completed: Yes Anesthesia Postop Eval I Summary Anesthesia Postop Eval I Summary: Anesthesia Postop Eval I: Assessment Summary Airway patent Yes 07/29/25 11:11 WAITER/WAITRESS ECONOMY CLASS.MDOT Spontaneous unlabored Yes 07/29/25 11:11 WAITER/WAITRESS ECONOMY CLASS.MDOT respirations Mental status Awake,Calm 07/29/25 11:11 WAITER/WAITRESS ECONOMY CLASS.MDOT nausea No 07/29/25 11:11 WAITER/WAITRESS ECONOMY CLASS.MDOT Vomiting No 07/29/25 11:11 WAITER/WAITRESS ECONOMY CLASS.MDOT Anesthesia Postop Eval I: Fluid Summary Crystalloid volume administer 500 07/29/25 11:11 WAITER/WAITRESS ECONOMY CLASS.MDOT (ml) Colloids volume administered ( ml) Blood Product volume administered (ml) Total IV fluid infused 500 07/29/25 11:11 WAITER/WAITRESS ECONOMY CLASS.MDOT Anesthesia Postop Eval I: Summary Notes Anesthesia Complication No 07/29/25 11:11 WAITER/WAITRESS ECONOMY CLASS.MDOT Anesthesia Complication Comment: Post-operative progress note Anesthesia: Postop Eval II Evaluation Mental status: Awake and Calm Pain Level: 0 nausea: No Vomiting: No Complications Anesthesia Complication: No
== END 2025-07-29 12:28 | disposition home or self-care (01) ==
LOC: EN 09:02 → AC 09:03
PROVIDERS: Anesthesiology; PCP Physician Assistant; Referring Provider Physician Assistant; Visit Provider Surgery
PROC: 0DJD8ZZ Inspection of Lower Intestinal Tract, Via Natural or Artificial Opening Endoscopic (ICD-10-PCS; CPT 45378; principal; 2025-07-29 09:55)
DX: K64.9 Unspecified hemorrhoids (principal); Z80.0 Family history of malignant neoplasm of digestive organs; K63.89 Other specified diseases of intestine; K62.1 Rectal polyp; K63.5 Polyp of colon; D12.0 Benign neoplasm of cecum
CPT/HCPCS: 45385; 45380; 81025; 88305; J2405